=== PATIENT | female | born 1985 | race Caucasian/White ===

== ENCOUNTER → 2018-10-06 08:30 | Outpatient (CLI) | payer BC, SELFPAY ==
[2018-10-06 16:10] LABS: Chlamydia Trachomatis by PCR Negative (Negative); Neisserai gonorrhoeae by PCR Negative (Negative); Probe Check PASS; Sample Adequacy Control PASS; Specimen Processing Control PASS
[2018-10-11 10:17] LABS: HPV APTIMA, High Risk Negative (Negative)
== END ==
PROVIDERS: Referring Provider Nurse Practitioner Women's Health; Visit Provider Nurse Practitioner Women's Health
DX: Z12.4 Encounter for screening for malignant neoplasm of cervix (principal); Z11.3 Encounter for screening for infections with a predominantly sexual mode of transmission
CPT/HCPCS: 87491; 87591; 87624; 88175; G0145

== ENCOUNTER → 2018-10-13 12:07 | Outpatient (CLI) | payer BC, SELFPAY ==
--- NOTE | 2018-10-13 12:09 | US_ITS ---
STUDY: ULTRASOUND OF THE FEMALE PELVIS - COMPLETE REASON FOR EXAM: Female, 33 years old. Irregular periods LMP: TECHNIQUE: Transabdominal and Transvaginal TECHNICAL QUALITY: Adequate. COMPARISON: None. FINDINGS: The uterus is anteverted and is tilted to the left side of the pelvis. The uterus measures 7.86 cm. Normal uterine cervix. The endometrium measures 10 mm in thickness, and is hyperechoic. There is no demonstrated endometrial mass. There is no demonstrated myometrial mass. I.U.D. - The patient does not have an I.U.D. The right ovary is visualized. The right ovary measures 3.1 x 2.1 x 2.6 cm. There is a simple 2.1 cm cyst. There is normal arterial and normal venous vascularity. The left ovary is visualized. The left ovary measures 2.7 x 1.5 x 2.0 cm. There is no left ovarian cyst or ovarian mass. There is no visualized left adnexal mass or complex lesion. There is normal arterial and normal venous vascularity. The follicles on the ovaries are of similar size and located around the periphery of each ovary. This can be seen with PCOS. There is no fluid in the cul-de-sac. The bladder is sonographically normal US/Transvaginal Non- IMPRESSION: Both ovaries show similar sized follicles around the periphery of each ovary which can be seen with PCOS Sonographically normal uterus No demonstrated free fluid Electronically Signed: Ananth Odell MD at 8:23 EST , Service support ,
--- NOTE | 2018-10-13 12:09 | US_ITS ---
STUDY: ULTRASOUND OF THE FEMALE PELVIS - COMPLETE REASON FOR EXAM: Female, 33 years old. Irregular periods LMP: TECHNIQUE: Transabdominal and Transvaginal TECHNICAL QUALITY: Adequate. COMPARISON: None. FINDINGS: The uterus is anteverted and is tilted to the left side of the pelvis. The uterus measures 7.86 cm. Normal uterine cervix. The endometrium measures 10 mm in thickness, and is hyperechoic. There is no demonstrated endometrial mass. There is no demonstrated myometrial mass. I.U.D. - The patient does not have an I.U.D. The right ovary is visualized. The right ovary measures 3.1 x 2.1 x 2.6 cm. There is a simple 2.1 cm cyst. There is normal arterial and normal venous vascularity. The left ovary is visualized. The left ovary measures 2.7 x 1.5 x 2.0 cm. There is no left ovarian cyst or ovarian mass. There is no visualized left adnexal mass or complex lesion. There is normal arterial and normal venous vascularity. The follicles on the ovaries are of similar size and located around the periphery of each ovary. This can be seen with PCOS. There is no fluid in the cul-de-sac. The bladder is sonographically normal US/Pelvic (Non ) IMPRESSION: Both ovaries show similar sized follicles around the periphery of each ovary which can be seen with PCOS Sonographically normal uterus No demonstrated free fluid Electronically Signed: Ananth Odell MD at 8:23 EST , Service support ,
[2018-10-13 14:08] LABS: Follicle Stimulating Hormone 5.2 mIU/mL; Prolactin 19.9 ng/mL; Thyroid Stim Hormone (TSH) 0.83 uIU/mL (0.358-3.74)
[2018-10-14 20:07] LABS: DHEA Sulfate 349.6 ug/dL (84.8-378.0)
[2018-10-15 12:11] LABS: Testosterone Free 4.4 pg/mL (0.0-4.2)
[2018-10-17 08:17] LABS: 17-Hydroxyprogesterone 25 ng/dL (.)
== END ==
PROVIDERS: Referring Provider Nurse Practitioner Women's Health; Visit Provider Nurse Practitioner Women's Health
DX: N92.6 Irregular menstruation, unspecified (principal)
CPT/HCPCS: 36415; 76830; 76856; 82627; 83001; 83498; 84146; 84402; 84443; 93976; 82626

== ENCOUNTER → 2018-12-08 10:20 | Outpatient (CLI) | payer BC, SELFPAY ==
[2018-10-06 08:33] VITALS: BMI 47.1
[2018-12-08 11:24] LABS: Absolute Lymphocyte Count 2.27 X10^3/ul (0.83-4.51); Absolute Neutrophil Count 5.9 X10^3/uL (2.0-7.7); Basophil# 0.03 X10^3/uL; Basophil% 0.3 % (0-1); Eosinophil# 0.07 X10^3/uL; Eosinophils% 0.8 % (0-5); Hematocrit 44.8 % (37-47); Hemoglobin 14.8 g/dl (12.0-15.0); Lymphocyte # 2.27 X10^3/ul (4.0); Lymphocyte % 25.9 % (19-41); Mean Corpuscular Hgb 28.3 pg (27.0-32.0); Mean Corpuscular Volume 85.7 fL (81-99); Mean Platelet Vol. 10.7 fl (6.2-12.0); Monocyte# 0.49 X10^3/uL; Monocyte% 5.6 % (0-10); Neutrophil # 5.88 X10^3/uL (2.7-7.7); Neutrophil % 67.2 % (47-70); Platelet Count 349 K/mm3 (150-450); RBC Distribution Width CV 12.8 % (11.6-14.6); RBC Distribution Width SD 39.8 fl (35.1-43.9); Red Blood Count 5.23 M/mm3 (4.2-5.4); White Blood Count 8.8 K/mm3 (4.4-11.0)
[2018-12-08 11:27] LABS: POSITIVE COUNT NO; POSITIVE DIFFERENTIAL NO; POSITIVE MORPHOLOGY NO
== END ==
PROVIDERS: Referring Provider Obstetrics & Gynecology; Visit Provider Obstetrics & Gynecology
DX: N92.6 Irregular menstruation, unspecified (principal)
CPT/HCPCS: 36415; 85025

== ENCOUNTER 2018-12-28 11:48 | Day surgery (SDC) | payer BC, SELFPAY ==
[2018-12-22 11:58] VITALS: BMI 46.2
--- NOTE | 2018-12-27 20:35 | HP.PCM_ITS ---
- Problem List (1) Irregular menses Status: Acute (2) Environmental allergies Status: Chronic (3) PCOS (polycystic ovarian syndrome) Status: Chronic History and Physical Date of Admission: 12/28/18 Intake Vital Signs 12/22/18 Height 5 ft 3 in 12/22/18 Weight: 261 lb 12/22/18 Body Mass Index (BMI) 46.2 12/22/18 Blood Pressure 140/98 H Intake Visit Reasons: Pre-op surgery Chief Complaint: pre op appt Stud Master/Mistress Required: No Is patient in pain?: No Allergies amoxicillin Allergy (Verified 12/22/18 11:58) Hives Medications NK 12/21/18 [History Confirmed 12/22/18] Is last menstrual period known: No Post menopausal: No Patient : No : No PFSH Medical History Environmental allergies (Chronic) PCOS (polycystic ovarian syndrome) (Acute) Surgical History H/O colonoscopy (Resolved) Hx of cholecystectomy (Resolved) Family History Father Heart disease Hypertension Mother Hypertension Grandmother Hypertension Myocardial infarction CVA (cerebral vascular accident) Social History Smoking Status: Never smoker alcohol intake: current alcohol intake frequency: holidays/special occasions only substance use type: does not use caffeine: Yes what type of physical activity do you participate in: none seatbelt use: always do you feel safe at home: Yes additional social history: Fwvxiue-Gwvwvm-Hksttf 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 she is planning a d and c hysteroscopy. Female Reproductive History Cycle Length: >35 Menopausal Symptoms: No night sweats Pregancy History 0 Elective abortions Hx Para Spontaneous abortions Hx # Term Pregnancies Ectopic pregnancies Hx # Pregnancies Multiple births # of living children ROS Const Constitutional: Denies night sweats, weight gain, weight loss or fatigue ENT ENT: Reports system reviewed and no additional complaints, except as docu Cardio Card: Denies chest pain Resp Resp: Denies dyspnea or cough GI GI: Reports as per HPI; denies vomiting, nausea, abdominal pain or constipation : Denies urinary incontinence, urinary frequency, urinary urgency, urinary hesitancy, vaginal itching, vaginal odor, vaginal dryness or vaginal discharge Musc Musc: Denies muscle weakness, joint pain or back pain Neuro Neuro: Reports system reviewed and no additional complaints, except as docu Psych Psych: Reports system reviewed and no additional complaints, except as docu Endo Endo: Denies cold intolerance, increased thirst, excessive sweating or heat intolerance John/Lymph Hematologic/Lymphatic: Denies easy bleeding, Denies easy bruising, Denies enlarged lymph nodes Exam Const General: cooperative, healthy appearing, comfortable, no acute distress, well developed Orientation: alert [facility] Head: normal to inspection, normocephalic Ears: hearing grossly normal bilaterally, external ears normal Nose: external nose normal, nares normal Face and sinus: normal facial exam Neck Neck: normal visual inspection, no lymphadenopathy Thyroid: thyroid normal Chest Chest palpation & inspection: normal inspection of the chest Resp Effort & Inspection: normal respiratory effort Cardio Rate: regular rate GI Inspection: normal to inspection, non-distended Palpation: soft, no hepatosplenomegaly Musc Other: gross motor intact no deficits, full bilateral strength Skin General: no rashes or lesions noted Neuro General: alert, awake, no focal motor deficits, moves all extremities Motor: muscle tone normal throughout Extrem General: normal to inspection, no pedal edema Psych Appearance: grossly normal Mental Status: mental status grossly normal Affect: normal affect Speech and Movement: speech and movement normal Assessment & Plan Problems 1. PCOS (polycystic ovarian syndrome) E28.2 2. Irregular menses N92.6 Plan discussed surgical risks including risks of anesthesia, infection, bleeding, injury to bowel, bladder or blood vessels, and patient wishes to proceed with surgery. Coding Level of Care Code No Charge Diagnoses PCOS (polycystic ovarian syndrome) E28.2 Irregular menses N92.6 UPDATE- I have seen the patient and performed any clinically relevant updates to the history and physical exam. Ruchi Orozco MD
[2018-12-28] VITALS (7 sets, daily range): BP systolic 118–144; BP diastolic 72–88; PULSE 99–105; RESP 16–18; TEMP 36.2–36.9; O2SAT 94–98; BMI 45.8
--- NOTE | 2018-12-28 | EMB_PTH ---
PATIENT: ARIN IRCE LOC: [facility] [place] U[place][id number] AGE/SX: 33/F ROOM: RE12/28/[address]: Dr. Ruchi Orozco MD : 1985 BED: DIS: 12/28/2018 SPEC #: [id number] RECD: 12/28/18 14:51 STATUS: NICK FRED #: [id number] JOSE: 12/28/18 00:[address]: Ruchi Orozco DEPT: SURGICAL PATHOLOGY RECD BY: [place] ENTERED: 12/29/18 09:07 SP TYPE: ENDOM BX/C ALISA DR: No Primary Care Phys Tissues: Endometrium, NOS Procedures: Surgery Specimen Level IV HEADER OPERATION: Hysteroscopy, dilation and curettage PRE-OP DIAGNOSIS: Abnormal uterine bleeding TISSUE SUBMITTED: Endometrial curettings and polyp MICROSCOPIC DIAGNOSIS Endometrium, curettings and polypectomy: Mildly disordered proliferative endometrium. Fragments of benign inflamed polyp and simple cystic hyperplasia without atypia. Rare strips of benign superficial endocervix. AM:dwight 01/01/19 MICROSCOPIC DESCRIPTION Slides are reviewed. GROSS DESCRIPTION Received in fixative is one container labeled with the patient's name and designated endometrial curettings and polyp. The specimen consists of multiple irregular fragments of light pink-ruiz soft tissue that in aggregate measure 5 x 3 x 0.2 cm. Also present in the specimen is a polypoid fragment of ruiz tissue measuring 3 x 1.5 x 0.3 cm. The specimen is totally submitted in three cassettes. The polyp is represented in cassette 3. / AM:dwight 12/29/18 TC:5 CPT: 91131
[2018-12-28 12:41] LABS: Internal QC Validated? YES +Cl - CLEAR BKGD; Pregnancy, Urine Negative Negative
--- NOTE | 2018-12-28 13:45 | PCM.OPRPT ---
Problem List (1) Irregular menses Status: Acute (2) Environmental allergies Status: Chronic (3) PCOS (polycystic ovarian syndrome) Status: Chronic Report of Operation Date of Procedure: 12/28/18 Pre-Operative Diagnosis: aub Post-Operative Diagnosis: same plus polyp Surgery/Procedure Performed:: d and c hysteroscopy polypectomy Description of Surgical Findings:: polyp Type of Anesthesia:: Local MAC Specimen's removed: emc and polyp Drains: nava Estimated Blood Loss (mL): 25 Fluids Replaced: crystalloid Description of Procedure: Patient was prepped and draped in a normal sterile fashion under MAC anesthesia. A weighted speculum was placed in the vagina and the anterior lip of the cervix was grasped with a single-tooth tenaculum. A paracervical block was placed with 1% lidocaine. Cervix was progressively dilated to allow passage of a 5 mm hysteroscope. The lining was fully visualized and noted to have a thickened appearance. Uterine sounded to 9 cm. Curettage was performed and a large amount of tissue including a 2 cm long endometrial polyp was removed, sent to pathology. All instruments were removed from the vagina and excellent hemostasis was noted. Patient was awoken and taken to recovery in stable condition. Grafts/Implants Used: none - Complications none
--- NOTE | 2018-12-28 13:47 | DCINST_ITS ---
Discharge Diet: No Restrictions Discharge Activity: Return to Normal Activity, May Shower, May Take a Tub Bath Allergies/Adverse Reactions: Allergies amoxicillin Allergy (Verified 12/22/18 11:58) Hives Medications to take at Discharge NK 12/21/18 Primary Care Physician: Care Physician,No Primary [Primary Care Provider] - Test Results: Test results from this visit will be discussed in further detail at your follow- up appointment, if applicable. Please Follow Up With: Ruchi Orozco MD - [phone]
== END 2018-12-28 15:25 | disposition home or self-care (01) ==
LOC: SDC 11:49 → AC 11:50
PROVIDERS: Anesthesiology; Referring Provider Obstetrics & Gynecology; Visit Provider Obstetrics & Gynecology
PROC: 0UDB8ZZ Extraction of Endometrium, Via Natural or Artificial Opening Endoscopic (ICD-10-PCS; CPT 58558; principal; 2018-12-28 13:20)
DX: N84.0 Polyp of corpus uteri (principal); E28.2 Polycystic ovarian syndrome; N92.6 Irregular menstruation, unspecified; Z90.49 Acquired absence of other specified parts of digestive tract
CPT/HCPCS: 00952; 58558; 36415; 81025; 86850; 86900; 88305; J7120

== ENCOUNTER → 2019-05-18 17:50 | Outpatient (CLI) | payer BC, SELFPAY ==
--- NOTE | 2019-05-18 | EMB_PTH ---
PATIENT: ARIN RICE LOC: [facility] U#:[id number] AGE/SX: 40/F ROOM: RE05/18/[address]: Dr. Ruchi Orozco MD : 1985 BED: DIS: SPEC #: [id number] RECD: 05/18/19 17:15 STATUS: NIKC RERiya #: [id number] JOSE: 05/18/19 00:[address]: Ruchi Orozco DEPT: SURGICAL PATHOLOGY RECD BY: Harmeet Fragoso ENTERED: 05/21/19 10:06 SP TYPE: ENDOM BX/C OT DR: No Primary Care Phys Tissues: Endometrium, NOS Procedures: Surgery Specimen Level IV HEADER OPERATION: Endometrial biopsy PRE-OP DIAGNOSIS: Abnormal uterine bleeding TISSUE SUBMITTED: Endometrial biopsy MICROSCOPIC DIAGNOSIS Endometrial biopsy: Weakly proliferative endometrium with focal disorderly changes. Focus suggestive of endometrial polyp. No endometrial hyperplasia or neoplasia identified. FA:dwight 6/25/19 COMMENT Case has been reviewed in consultation with Dr. Reyes who concurs with the above diagnosis. IDC:[id number] MICROSCOPIC DESCRIPTION Slides are reviewed. GROSS DESCRIPTION Received is one container labeled with the patient's name and not further designated. The specimen consists of multiple jnbs-unfqsit-iuf tissue fragments mixed with mucoid material that in aggregate measure 1.5 x 1.5 0.2 cm. The specimen is totally submitted in one cassette. / FA:dwight 05/21/19 TC:4 CPT: 21663
[2019-05-18 14:41] VITALS: BMI 45.8
== END ==
PROVIDERS: Referring Provider Obstetrics & Gynecology; Visit Provider Obstetrics & Gynecology
DX: N89.8 Other specified noninflammatory disorders of vagina (principal); N93.9 Abnormal uterine and vaginal bleeding, unspecified
CPT/HCPCS: 87070; 87077; 87186; 87205; 88305

== ENCOUNTER → 2019-08-24 13:59 | Outpatient (CLI) | payer BC, SELFPAY ==
[2019-08-24 11:06] VITALS: BMI 45.8
== END ==
PROVIDERS: Visit Provider Obstetrics & Gynecology
DX: N92.6 Irregular menstruation, unspecified (principal)
CPT/HCPCS: 87070; 87077; 87186; 87205

== ENCOUNTER → 2019-09-07 12:08 | Outpatient (CLI) | payer BC, SELFPAY ==
[2019-08-24 11:06] VITALS: BMI 45.8
--- NOTE | 2019-09-07 12:10 | US_ITS ---
STUDY: ULTRASOUND OF THE FEMALE PELVIS - COMPLETE REASON FOR EXAM: Female, 34 years old. Irregular menses LMP: 08/10/2019 TECHNIQUE: Transabdominal and Transvaginal TECHNICAL QUALITY: Adequate. COMPARISON: 10/13/2018 FINDINGS: The uterus is anteverted and is in a midline position. The uterus measures 7.8 x 3.8 x 3.7 cm. 7 mm isoechoic nodule within the cervical canal without demonstrated Doppler flow. The endometrium measures 5.8 mm in thickness, and is hyperechoic. There is no demonstrated endometrial mass. There is no demonstrated myometrial mass although there is myometrial heterogeneity.. I.U.D. - The patient does not have an I.U.D. The right ovary is visualized. The right ovary measures 2.7 x 1.8 x 1.8 cm. There are multiple follicles of the right ovary without a dominant cyst. There is no visualized right adnexal mass or complex lesion. There is normal arterial and normal venous vascularity. The left ovary is visualized. The left ovary measures 3.4 x 2.7 x 2.1 cm. There are multiple follicles of the left ovary without a dominant cyst. There is no visualized left adnexal mass or complex lesion. There is normal arterial and normal venous vascularity. There is no fluid in the cul-de-sac. Visualized urinary bladder is unremarkable. US/Transvaginal Non- IMPRESSION: 1. Subcentimeter nodule in the cervix could represent small fibroid versus endometrial polyp, not evident on the prior study. Consider additional evaluation with MRI (without and with IV contrast) 2. Bilateral ovarian follicles without dominant cyst. Electronically Signed: Saurabh Wang MD ([place]) at 16:11 EDT , Service support ,
--- NOTE | 2019-09-07 12:10 | US_ITS ---
STUDY: ULTRASOUND OF THE FEMALE PELVIS - COMPLETE REASON FOR EXAM: Female, 34 years old. Irregular menses LMP: 08/10/2019 TECHNIQUE: Transabdominal and Transvaginal TECHNICAL QUALITY: Adequate. COMPARISON: 10/13/2018 FINDINGS: The uterus is anteverted and is in a midline position. The uterus measures 7.8 x 3.8 x 3.7 cm. 7 mm isoechoic nodule within the cervical canal without demonstrated Doppler flow. The endometrium measures 5.8 mm in thickness, and is hyperechoic. There is no demonstrated endometrial mass. There is no demonstrated myometrial mass although there is myometrial heterogeneity.. I.U.D. - The patient does not have an I.U.D. The right ovary is visualized. The right ovary measures 2.7 x 1.8 x 1.8 cm. There are multiple follicles of the right ovary without a dominant cyst. There is no visualized right adnexal mass or complex lesion. There is normal arterial and normal venous vascularity. The left ovary is visualized. The left ovary measures 3.4 x 2.7 x 2.1 cm. There are multiple follicles of the left ovary without a dominant cyst. There is no visualized left adnexal mass or complex lesion. There is normal arterial and normal venous vascularity. There is no fluid in the cul-de-sac. Visualized urinary bladder is unremarkable. US/Pelvic (Non ) IMPRESSION: 1. Subcentimeter nodule in the cervix could represent small fibroid versus endometrial polyp, not evident on the prior study. Consider additional evaluation with MRI (without and with IV contrast) 2. Bilateral ovarian follicles without dominant cyst. Electronically Signed: Saurabh Wang MD ([place]) at 16:11 EDT , Service support ,
== END ==
PROVIDERS: Referring Provider Obstetrics & Gynecology; Visit Provider Obstetrics & Gynecology
DX: N92.6 Irregular menstruation, unspecified (principal)
CPT/HCPCS: 76830; 76856; 93976

== ENCOUNTER → 2019-09-22 07:42 | Outpatient (CLI) | payer BC, SELFPAY ==
[2019-08-24 11:06] VITALS: BMI 45.8
--- NOTE | 2019-09-22 08:30 | MRI_ITS ---
HISTORY: endocervical polyp, abnormal uterine bleeding COMPARISON: Ultrasound 09/07/2019 TECHNIQUE: Multiplanar, multisequence MRI of the pelvis without and with contrast, 23 mL Dotarem intravenously. FINDINGS: UTERUS: Measures 7.5 x 3.8 x 5.5 cm. No distinct myometrial mass. Endometrium appears unremarkable measuring 7 mm. No distinct cervical lesion is seen on MRI. OVARIES: Unremarkable measuring 2.9 x 2.2 x 1.9 cm on the right and 3.2 x 2.9 x 2.3 cm on the left. Multiple small follicles bilaterally. BLADDER: Unremarkable. VISUALIZED GASTROINTESTINAL TRACT: Unremarkable. PERITONEUM: No significant free fluid. LYMPH NODES: No significant adenopathy. SKELETON AND SOFT TISSUES: Unremarkable. MRI/Pelvis W/WO Contrast IMPRESSION: No definite cervical abnormality is apparent on MRI. at 2219 Reported and signed by: Sharla Calabrese MD Electronically Signed: Sharla Calabrese MD at 22:19 EDT Tel , Service support ,
== END ==
PROVIDERS: Referring Provider Obstetrics & Gynecology; Visit Provider Obstetrics & Gynecology
DX: N84.1 Polyp of cervix uteri (principal)
CPT/HCPCS: 72197; A9575

== ENCOUNTER → 2019-11-23 13:44 | Outpatient (CLI) | payer BC, SELFPAY ==
[2019-11-23 08:37] VITALS: BMI 43.9
--- NOTE | 2019-11-23 08:40 | EMB_PTH ---
PATIENT: ARIN RICE LOC: [facility] U#:[id number] AGE/SX: 40/F ROOM: RE11/23/[address]: Dr. Ruchi Orozco MD : 1985 BED: DIS: SPEC #: [id number] RECD: 11/23/19 13:12 STATUS: NICK RERiya #: [id number] JOSE: 11/23/19 08:[address]: Ruchi Orozco DEPT: SURGICAL PATHOLOGY RECD BY: Arjun Jules ENTERED: 11/23/19 14:07 SP TYPE: ENDOM BX/C ALISA DR: Dr. Patricia Acevedo MD Tissues: Endometrium, NOS Procedures: Surgery Specimen Level IV HEADER OPERATION: Endometrial biopsy PRE-OP DIAGNOSIS: Simple endometrial hyperplasia without atypia TISSUE SUBMITTED: Endometrium MICROSCOPIC DIAGNOSIS Endometrium, biopsy: Secretory endometrium. AM:dwight 11/26/19 MICROSCOPIC DESCRIPTION Slides are reviewed. GROSS DESCRIPTION Received is one container labeled with the patient's name and not further designated. The specimen consists of multiple irregular fragments of pink-ruiz soft tissue that in aggregate measure 1.5 x 1.5 x 0.1 cm. The specimen is totally submitted in one cassette. / AM:dwight 11/23/19 TC:5 CPT: 15549
== END ==
PROVIDERS: Family Provider Internal Medicine; PCP Internal Medicine; Referring Provider Obstetrics & Gynecology; Visit Provider Obstetrics & Gynecology
DX: N85.01 Benign endometrial hyperplasia (principal)
CPT/HCPCS: 88305

== ENCOUNTER → 2019-11-30 11:08 | Outpatient (CLI) | payer BC, SELFPAY ==
[2019-11-23 08:37] VITALS: BMI 43.9
--- NOTE | 2019-11-30 11:09 | EKG12_ITS ---
Test Reason : HTN Blood Pressure : / mmHG Vent. Rate : 067 BPM Atrial Rate : 067 BPM P-R Int : 166 ms QRS Dur : 080 ms QT Int : 370 ms P-R-T Axes : 028 017 010 degrees QTc Int : 390 ms Sinus rhythm with marked sinus arrhythmia Otherwise normal ECG Confirmed by GAMA LARSON, JENNYFER ([id number]), index editor ARIN VALENZUELA ([id number]) on 12/03/2019 12:48:35 PM Referred By: Patricia Acevedo Confirmed By:JENNYFER MALLOY MD
== END ==
PROVIDERS: Family Provider Internal Medicine; PCP Internal Medicine; Referring Provider Internal Medicine; Visit Provider Internal Medicine
DX: I10 Essential (primary) hypertension (principal)
CPT/HCPCS: 93005

== ENCOUNTER → 2019-12-01 10:48 | Outpatient (CLI) | payer BC, SELFPAY ==
[2019-11-23 08:37] VITALS: BMI 43.9
[2019-12-01 11:37] LABS: Hemoglobin A1c 5.3 % (4.2-6.3)
[2019-12-01 11:40] LABS: ALB/GLOB Ratio 0.8 RATIO (0.9-2.4); AST(SGOT) 14 U/L (15-37); Alanine Aminotransfer ALT/SGPT 28 U/L (13-56); Albumin, Serum 3.4 g/dL (3.2-5.0); Alkaline Phosphatase 55 U/L (45-117); Anion Gap 5 (5-15); BUN 14 mg/dL (7-18); BUN/Creat Ratio 14.4 RATIO (10-20); Calcium,Total 8.6 mg/dL (8.5-10.1); Chloride 110 mmol/L (98-107); Cholesterol 169 mg/dL (200); Creatinine, Serum 0.98 mg/dL (0.55-1.02); EST Glomerular Filtration Rate 70 mL/min (>60); Est Glom Filt Rate - Afr Amer 84 mL/min (>60); Glucose 89 mg/dL (74-106); High Density Lipoprotein 47 mg/dL; Potassium 4.1 mmol/L (3.5-5.1); Protein, Total 7.4 g/dL (6.4-8.2); Sodium Level 140 mmol/L (136-145); T4 Free Direct 1.14 ng/dL (0.76-1.46); Thyroid Stim Hormone (TSH) 1.39 uIU/mL (0.358-3.74); Triglycerides 111 mg/dL; Very Low Density Lipoprotein 22 mg/dL (5-40)
== END ==
PROVIDERS: Family Provider Internal Medicine; PCP Internal Medicine; Referring Provider Internal Medicine; Visit Provider Internal Medicine
DX: I10 Essential (primary) hypertension (principal); E66.01 Morbid (severe) obesity due to excess calories; Z68.41 Body mass index [BMI] 40.0-44.9, adult
CPT/HCPCS: 36415; 80053; 80061; 83036; 84439; 84443

== ENCOUNTER → 2019-12-21 13:13 | Outpatient (CLI) | payer BC, SELFPAY ==
[2019-11-23 08:37] VITALS: BMI 43.9
[2019-12-21 08:13] VITALS: BMI 43.9
--- NOTE | 2019-12-21 13:14 | US_ITS ---
STUDY: ULTRASOUND OF THE FEMALE PELVIS - COMPLETE REASON FOR EXAM: Female, 34 years old. Irregular menses TECHNIQUE: Transabdominal and Transvaginal TECHNICAL QUALITY: Adequate. COMPARISON: MRI dated 09/22/2019. FINDINGS: The uterus is anteverted and is in a midline position. The uterus measures 9.1 x 4.0 x 3.2 cm. Normal uterine cervix. The endometrium measures 4 mm in thickness, and is hyperechoic. There is no demonstrated endometrial mass. There is no demonstrated myometrial mass. The right ovary is visualized. The right ovary measures 3.3 x 2.4 x 2.0 cm. There is no right ovarian cyst or ovarian mass. There is no visualized right adnexal mass or complex lesion. There is normal arterial and normal venous vascularity. The left ovary is visualized. The left ovary measures 3.2 x 2.4 x 1.8 cm. There is no left ovarian cyst or ovarian mass. There is no visualized left adnexal mass or complex lesion. There is normal arterial and normal venous vascularity. There is no fluid in the cul-de-sac. US/Transvaginal Non- IMPRESSION: Normal female pelvis. Electronically Signed: Lon Honeycutt, at 14:34 EST Tel , Service support ,
--- NOTE | 2019-12-21 13:14 | US_ITS ---
STUDY: ULTRASOUND OF THE FEMALE PELVIS - COMPLETE REASON FOR EXAM: Female, 34 years old. Irregular menses TECHNIQUE: Transabdominal and Transvaginal TECHNICAL QUALITY: Adequate. COMPARISON: MRI dated 09/22/2019. FINDINGS: The uterus is anteverted and is in a midline position. The uterus measures 9.1 x 4.0 x 3.2 cm. Normal uterine cervix. The endometrium measures 4 mm in thickness, and is hyperechoic. There is no demonstrated endometrial mass. There is no demonstrated myometrial mass. The right ovary is visualized. The right ovary measures 3.3 x 2.4 x 2.0 cm. There is no right ovarian cyst or ovarian mass. There is no visualized right adnexal mass or complex lesion. There is normal arterial and normal venous vascularity. The left ovary is visualized. The left ovary measures 3.2 x 2.4 x 1.8 cm. There is no left ovarian cyst or ovarian mass. There is no visualized left adnexal mass or complex lesion. There is normal arterial and normal venous vascularity. There is no fluid in the cul-de-sac. US/Pelvic (Non ) IMPRESSION: Normal female pelvis. Electronically Signed: Lon Honeycutt, at 14:34 EST Tel , Service support ,
== END ==
PROVIDERS: Family Provider Internal Medicine; PCP Internal Medicine; Referring Provider Nurse Practitioner Women's Health; Visit Provider Nurse Practitioner Women's Health
DX: N85.01 Benign endometrial hyperplasia (principal); N92.6 Irregular menstruation, unspecified; E28.2 Polycystic ovarian syndrome
CPT/HCPCS: 76830; 76856

== ENCOUNTER → 2020-01-18 09:53 | Outpatient (CLI) | payer BC, SELFPAY ==
[2019-12-21 08:13] VITALS: BMI 43.9
[2020-01-18 13:22] LABS: Anion Gap 7 (5-15); BUN 14 mg/dL (7-18); BUN/Creat Ratio 13.6 RATIO (10-20); Calcium,Total 9.3 mg/dL (8.5-10.1); Chloride 108 mmol/L (98-107); Creatinine, Serum 1.03 mg/dL (0.55-1.02); EST Glomerular Filtration Rate 65 mL/min (>60); Est Glom Filt Rate - Afr Amer 79 mL/min (>60); Glucose 88 mg/dL (74-106); Potassium 3.7 mmol/L (3.5-5.1); Sodium Level 140 mmol/L (136-145)
== END ==
PROVIDERS: PCP Internal Medicine; Referring Provider Internal Medicine; Visit Provider Internal Medicine
DX: I10 Essential (primary) hypertension (principal); I49.9 Cardiac arrhythmia, unspecified
CPT/HCPCS: 36415; 80048; 83735

== ENCOUNTER → 2020-01-25 08:51 | Outpatient (CLI) | payer BC, SELFPAY ==
[2020-01-18 10:10] VITALS: BMI 42.5
== END ==
PROVIDERS: PCP Internal Medicine; Referring Provider Internal Medicine; Visit Provider Internal Medicine
DX: I49.9 Cardiac arrhythmia, unspecified (principal)
CPT/HCPCS: 93225; 93226

== ENCOUNTER → 2020-02-15 11:20 | Outpatient (CLI) | payer BC, SELFPAY ==
[2020-02-15 10:52] VITALS: BMI 42.8
[2020-02-15 12:40] LABS: Anion Gap 8 (5-15); BUN 13 mg/dL (7-18); BUN/Creat Ratio 14.7 RATIO (10-20); Chloride 104 mmol/L (98-107); Creatinine, Serum 0.88 mg/dL (0.55-1.02); EST Glomerular Filtration Rate 78 mL/min (>60); Est Glom Filt Rate - Afr Amer 94 mL/min (>60); Glucose 95 mg/dL (74-106); Potassium 3.7 mmol/L (3.5-5.1); Sodium Level 137 mmol/L (136-145)
== END ==
PROVIDERS: PCP Internal Medicine; Referring Provider Internal Medicine; Visit Provider Internal Medicine
DX: I10 Essential (primary) hypertension (principal)
CPT/HCPCS: 36415; 80048

== ENCOUNTER → 2020-04-07 11:37 | Outpatient (CLI) | payer BC, SELFPAY ==
[2020-03-21 09:22] VITALS: BMI 42.5
== END ==
PROVIDERS: PCP Internal Medicine; Visit Provider Internal Medicine
DX: G47.10 Hypersomnia, unspecified (principal)
CPT/HCPCS: 95806

== ENCOUNTER → 2020-05-23 10:00 | Outpatient (CLI) | payer BC, SELFPAY ==
[2020-03-21 09:22] VITALS: BMI 42.5
== END ==
PROVIDERS: PCP Internal Medicine; Referring Provider Nurse Practitioner Acute Care; Visit Provider Nurse Practitioner Acute Care
DX: Z46.89 Encounter for fitting and adjustment of other specified devices (principal)

== ENCOUNTER → 2020-05-26 10:00 | Outpatient (CLI) | payer BC, SELFPAY ==
[2020-03-21 09:22] VITALS: BMI 42.5
== END ==
PROVIDERS: PCP Internal Medicine; Visit Provider Nurse Practitioner Acute Care
DX: Z46.89 Encounter for fitting and adjustment of other specified devices (principal)

== ENCOUNTER → 2020-10-31 13:46 | Outpatient (CLI) | payer BC, SELFPAY ==
[2020-10-10 11:28] VITALS: BMI 43.7
[2020-10-31 15:13] LABS: Absolute Lymphocyte Count 2.45 X10^3/uL (0.83-4.51); Absolute Neutrophil Count 5.3 X10^3/uL (2.0-7.7); Basophil# 0.05 X10^3/uL; Basophil% 0.6 % (0-1); Eosinophil# 0.08 X10^3/uL; Hematocrit 40.7 % (37-47); Hemoglobin 13.2 g/dL (12.0-15.0); Lymphocyte # 2.45 X10^3/ul (4.0); Lymphocyte % 29.2 % (19-41); Mean Corp Hgb Conc 32.4 g/dL (32-36); Mean Corpuscular Hgb 28.2 pg (27.0-32.0); Mean Platelet Vol. 10.7 fl (6.2-12.0); Monocyte# 0.45 X10^3/uL; Monocyte% 5.4 % (0-10); NRBC Flagged by Analyzer 0 % (0-5); Neutrophil # 5.34 X10^3/uL (2.7-7.7); Neutrophil % 63.4 % (47-70); Platelet Count 346 K/mm3 (150-450); RBC Distribution Width CV 12.6 % (11.6-14.6); RBC Distribution Width SD 40.2 fl (35.1-43.9); Red Blood Count 4.68 M/mm3 (4.2-5.4); White Blood Count 8.4 K/mm3 (4.4-11.0)
[2020-10-31 15:54] LABS: ALB/GLOB Ratio 0.9 RATIO (0.9-2.4); AST(SGOT) 18 U/L (15-37); Alanine Aminotransfer ALT/SGPT 34 U/L (13-56); Albumin, Serum 3.5 g/dL (3.2-5.0); Alkaline Phosphatase 57 U/L (45-117); Anion Gap 6 (5-15); BUN 13 mg/dL (7-18); BUN/Creat Ratio 15.4 RATIO (10-20); Calcium,Total 9.3 mg/dL (8.5-10.1); Chloride 107 mmol/L (98-107); Creatinine, Serum 0.84 mg/dL (0.55-1.02); EST Glomerular Filtration Rate 82 mL/min (>60); Est Glom Filt Rate - Afr Amer 99 mL/min (>60); Glucose 90 mg/dL (74-106); Potassium 3.4 mmol/L (3.5-5.1); Protein, Total 7.5 g/dL (6.4-8.2); Sodium Level 138 mmol/L (136-145)
== END ==
PROVIDERS: PCP Internal Medicine; Referring Provider Internal Medicine; Visit Provider Internal Medicine
DX: I10 Essential (primary) hypertension (principal); E28.2 Polycystic ovarian syndrome
CPT/HCPCS: 36415; 80053; 85025

== ENCOUNTER → 2020-12-05 10:11 | Outpatient (CLI) | payer BC, SELFPAY ==
[2020-12-05 09:32] VITALS: BMI 43.9
[2020-12-05 12:44] LABS: Anion Gap 7 (5-15); BUN 16 mg/dL (7-18); BUN/Creat Ratio 16.9 RATIO (10-20); Chloride 105 mmol/L (98-107); Creatinine, Serum 0.94 mg/dL (0.55-1.02); EST Glomerular Filtration Rate 72 mL/min (>60); Est Glom Filt Rate - Afr Amer 87 mL/min (>60); Glucose 82 mg/dL (74-106); Potassium 3.9 mmol/L (3.5-5.1); Sodium Level 138 mmol/L (136-145)
== END ==
PROVIDERS: PCP Internal Medicine; Referring Provider Internal Medicine; Visit Provider Internal Medicine
DX: I10 Essential (primary) hypertension (principal)
CPT/HCPCS: 36415; 80048

== ENCOUNTER → 2021-06-12 10:59 | Outpatient (CLI) | payer BC, SELFPAY ==
[2021-06-12 10:33] VITALS: BMI 44.6
[2021-06-12 12:25] LABS: ALB/GLOB Ratio 0.9 RATIO (0.9-2.4); AST(SGOT) 32 U/L (15-37); Alanine Aminotransfer ALT/SGPT 63 U/L (13-56); Albumin, Serum 3.6 g/dL (3.2-5.0); Alkaline Phosphatase 60 U/L (45-117); Anion Gap 6 (5-15); BUN 13 mg/dL (7-18); BUN/Creat Ratio 12.6 RATIO (10-20); Calcium,Total 9.3 mg/dL (8.5-10.1); Chloride 106 mmol/L (98-107); Creatinine, Serum 1.03 mg/dL (0.55-1.02); EST Glomerular Filtration Rate 65 mL/min (>60); Est Glom Filt Rate - Afr Amer 79 mL/min (>60); Globulin 4.2 g/dL (2.2-4.2); Glucose 93 mg/dL (74-106); Potassium 3.8 mmol/L (3.5-5.1); Protein, Total 7.8 g/dL (6.4-8.2); Sodium Level 137 mmol/L (136-145)
== END ==
PROVIDERS: PCP Internal Medicine; Referring Provider Internal Medicine; Visit Provider Internal Medicine
DX: I10 Essential (primary) hypertension (principal)
CPT/HCPCS: 36415; 80053

== ENCOUNTER → 2021-09-04 09:40 | Outpatient (CLI) | payer BC, SELFPAY ==
[2021-09-04 09:53] LABS: Absolute Lymphocyte Count 2.46 X10^3/uL (0.83-4.51); Basophil# 0.06 X10^3/uL; Basophil% 0.7 % (0-1); Eosinophil# 0.08 X10^3/uL; Eosinophils% 0.9 % (0-5); Hematocrit 41.1 % (37-47); Hemoglobin 13.4 g/dL (12.0-15.0); Lymphocyte # 2.46 X10^3/ul (0.83-4.51); Lymphocyte % 27.2 % (19-41); Mean Corp Hgb Conc 32.6 g/dL (32-36); Mean Corpuscular Hgb 28.2 pg (27.0-32.0); Mean Corpuscular Volume 86.3 fL (81-99); Mean Platelet Vol. 9.6 fl (6.2-12.0); Monocyte# 0.47 X10^3/uL; Monocyte% 5.2 % (0-10); NRBC Flagged by Analyzer 0 % (0-5); Neutrophil # 5.96 X10^3/uL (2.7-7.7); Neutrophil % 65.8 % (47-70); Platelet Count 374 K/mm3 (150-450); RBC Distribution Width CV 12.8 % (11.6-14.6); RBC Distribution Width SD 40.1 fl (35.1-43.9); Red Blood Count 4.76 M/mm3 (4.2-5.4); White Blood Count 9.1 K/mm3 (4.4-11.0)
[2021-09-04 10:15] LABS: T4 Free Direct 0.91 ng/dL (0.76-1.46); Thyroid Stim Hormone (TSH) 1.39 uIU/mL (0.358-3.74)
== END ==
PROVIDERS: PCP Internal Medicine; Referring Provider Obstetrics & Gynecology; Visit Provider Obstetrics & Gynecology
DX: N93.9 Abnormal uterine and vaginal bleeding, unspecified (principal)
CPT/HCPCS: 36415; 84439; 84443; 85025

== ENCOUNTER → 2021-09-25 11:22 | Outpatient (CLI) | payer BC, SELFPAY ==
--- NOTE | 2021-09-25 11:23 | US_ITS ---
STUDY: ULTRASOUND OF THE FEMALE PELVIS - COMPLETE REASON FOR EXAM: Female, 36 years old. aub LMP: 09/17/2021. TECHNIQUE: Transabdominal and Transvaginal TECHNICAL QUALITY: Adequate. COMPARISON: Comparison is made with prior examination dated 06/20/2020. FINDINGS: The uterus is anteverted and is in a midline position. The uterus measures 7.1 cm x 4 cm x 3.3 cm. There is a Nabothian cyst of the cervix. The endometrium measures 4.6 mm in thickness, and is hyperechoic. There is no demonstrated endometrial mass. There is no demonstrated myometrial mass. I.U.D. - The patient does not have an I.U.D. The right ovary is visualized. The right ovary measures 2.9 cm x 2.3 cm x 2.4 cm. Follicles are seen in the right ovary. There is no visualized right adnexal mass or complex lesion. There is normal arterial and normal venous vascularity. The left ovary is visualized. The left ovary measures 3.4 cm x 2.8 cm x 1.7 cm. Follicles are seen in the left ovary. There is no visualized left adnexal mass or complex lesion. There is normal arterial and normal venous vascularity. There is no fluid in the cul-de-sac. The pre void volume of the bladder was 346 ml. US/Pelvic (Non ) IMPRESSION: Normal female pelvis. Electronically Signed: Cilff Rush MD at 14:44 EDT , Service support ,
--- NOTE | 2021-09-25 11:23 | US_ITS ---
STUDY: ULTRASOUND OF THE FEMALE PELVIS - COMPLETE REASON FOR EXAM: Female, 36 years old. aub LMP: 09/17/2021. TECHNIQUE: Transabdominal and Transvaginal TECHNICAL QUALITY: Adequate. COMPARISON: Comparison is made with prior examination dated 06/20/2020. FINDINGS: The uterus is anteverted and is in a midline position. The uterus measures 7.1 cm x 4 cm x 3.3 cm. There is a Nabothian cyst of the cervix. The endometrium measures 4.6 mm in thickness, and is hyperechoic. There is no demonstrated endometrial mass. There is no demonstrated myometrial mass. I.U.D. - The patient does not have an I.U.D. The right ovary is visualized. The right ovary measures 2.9 cm x 2.3 cm x 2.4 cm. Follicles are seen in the right ovary. There is no visualized right adnexal mass or complex lesion. There is normal arterial and normal venous vascularity. The left ovary is visualized. The left ovary measures 3.4 cm x 2.8 cm x 1.7 cm. Follicles are seen in the left ovary. There is no visualized left adnexal mass or complex lesion. There is normal arterial and normal venous vascularity. There is no fluid in the cul-de-sac. The pre void volume of the bladder was 346 ml. US/Transvaginal Non- IMPRESSION: Normal female pelvis. Electronically Signed: Cliff Rush MD at 14:44 EDT , Service support ,
== END ==
PROVIDERS: PCP Internal Medicine; Referring Provider Obstetrics & Gynecology; Visit Provider Obstetrics & Gynecology
DX: N93.9 Abnormal uterine and vaginal bleeding, unspecified (principal)
CPT/HCPCS: 76830; 76856

== ENCOUNTER 2022-01-08 10:27 | Outpatient (CLI) | payer BC, SELFPAY ==
[2022-01-08 11:30] LABS: Cholesterol 195 mg/dL (200); Glucose 88 mg/dL (74-106); High Density Lipoprotein 49 mg/dL; Thyroid Stim Hormone (TSH) 0.68 uIU/mL (0.358-3.74); Triglycerides 101 mg/dL; Very Low Density Lipoprotein 20 mg/dL (5-40)
== END 2022-01-08 23:59 | disposition home or self-care (01) ==
LOC: PAVLAB 10:27
PROVIDERS: PCP Internal Medicine; Referring Provider Obstetrics & Gynecology; Visit Provider Obstetrics & Gynecology
DX: Z13.1 Encounter for screening for diabetes mellitus (principal); Z13.220 Encounter for screening for lipoid disorders; Z13.29 Encounter for screening for other suspected endocrine disorder
CPT/HCPCS: 36415; 80061; 82947; 84443

== ENCOUNTER → 2022-03-24 | Outpatient (CLI) | payer BC, SELFPAY ==
[2022-03-24 18:55] LABS: Progesterone Level 15.35 ng/mL (See Comment)
== END | disposition home or self-care (01) ==
LOC: LAB 17:17
PROVIDERS: PCP Internal Medicine; Visit Provider Obstetrics & Gynecology
DX: N97.0 Female infertility associated with anovulation (principal)
CPT/HCPCS: 36415; 84144

== ENCOUNTER → 2022-04-21 | Outpatient (CLI) | payer BC, SELFPAY ==
[2022-04-21 18:46] LABS: Progesterone Level 0.67 ng/mL (See Comment)
== END | disposition home or self-care (01) ==
LOC: LAB 16:59
PROVIDERS: PCP Internal Medicine; Visit Provider Obstetrics & Gynecology
DX: N97.0 Female infertility associated with anovulation (principal)
CPT/HCPCS: 36415; 84144

== ENCOUNTER → 2022-05-14 | Outpatient (CLI) | payer BC, SELFPAY ==
[2022-05-14 14:10] LABS: Progesterone Level 0.55 ng/mL (See Comment)
== END | disposition home or self-care (01) ==
LOC: LAB 13:27
PROVIDERS: PCP Internal Medicine; Referring Provider Obstetrics & Gynecology; Visit Provider Obstetrics & Gynecology
DX: N97.0 Female infertility associated with anovulation (principal)
CPT/HCPCS: 36415; 84144

== ENCOUNTER → 2022-07-12 | Outpatient (CLI) | payer BC, SELFPAY ==
[2022-07-12 18:34] LABS: Progesterone Level 0.33 ng/mL (See Comment)
== END | disposition home or self-care (01) ==
LOC: LAB 17:16
PROVIDERS: PCP Internal Medicine; Visit Provider Obstetrics & Gynecology
DX: N92.1 Excessive and frequent menstruation with irregular cycle (principal)
CPT/HCPCS: 36415; 84144

== ENCOUNTER → 2022-12-03 | Outpatient (CLI) | payer BC, SELFPAY ==
[2022-12-03 13:18] LABS: Absolute Lymphocyte Count 2.51 X10^3/uL (0.83-4.51); Basophil# 0.04 X10^3/uL; Basophil% 0.5 % (0-1); Eosinophil# 0.07 X10^3/uL; Eosinophils% 0.9 % (0-5); Hematocrit 43.1 % (37-47); Hemoglobin 14.2 g/dL (12.0-15.0); Lymphocyte # 2.51 X10^3/ul (0.83-4.51); Lymphocyte % 30.8 % (19-41); Mean Corp Hgb Conc 32.9 g/dL (32-36); Mean Corpuscular Hgb 28.7 pg (27.0-32.0); Mean Corpuscular Volume 87.2 fL (81-99); Mean Platelet Vol. 10.3 fl (6.2-12.0); Monocyte# 0.44 X10^3/uL; Monocyte% 5.4 % (0-10); NRBC Flagged by Analyzer 0 % (0-5); Neutrophil # 5.03 X10^3/uL (2.7-7.7); Neutrophil % 61.8 % (47-70); Platelet Count 369 K/mm3 (150-450); RBC Distribution Width SD 40.6 fl (35.1-43.9); Red Blood Count 4.94 M/mm3 (4.2-5.4); White Blood Count 8.1 K/mm3 (4.4-11.0)
[2022-12-03 13:39] LABS: AST(SGOT) 19 U/L (15-37); Alanine Aminotransfer ALT/SGPT 36 U/L (13-56); Albumin, Serum 3.8 g/dL (3.2-5.0); Alkaline Phosphatase 61 U/L (45-117); Anion Gap 4 (5-15); BUN 16 mg/dL (7-18); BUN/Creat Ratio 17.3 RATIO (10-20); Calcium,Total 9.2 mg/dL (8.5-10.1); Chloride 106 mmol/L (98-107); Cholesterol 172 mg/dL (200); Creatinine, Serum 0.93 mg/dL (0.55-1.02); EST Glomerular Filtration Rate 73 mL/min (>60); Est Glom Filt Rate - Afr Amer 88 mL/min (>60); Globulin 3.7 g/dL (2.2-4.2); Glucose 100 mg/dL (74-106); High Density Lipoprotein 53 mg/dL; Potassium 3.8 mmol/L (3.5-5.1); Protein, Total 7.5 g/dL (6.4-8.2); Sodium Level 139 mmol/L (136-145); Triglycerides 91 mg/dL; Very Low Density Lipoprotein 18 mg/dL (5-40)
== END | disposition home or self-care (01) ==
LOC: BIMLAB 12:10
PROVIDERS: PCP Internal Medicine; Referring Provider Internal Medicine; Visit Provider Internal Medicine
DX: I10 Essential (primary) hypertension (principal)
CPT/HCPCS: 36415; 80053; 80061; 85025

== ENCOUNTER → 2022-12-24 | Outpatient (CLI) | payer BC, SELFPAY ==
[2022-12-30 19:39] LABS: HPV APTIMA, High Risk Negative (Negative)
== END | disposition home or self-care (01) ==
LOC: LABSPEC 16:18
PROVIDERS: PCP Internal Medicine; Visit Provider Obstetrics & Gynecology
DX: Z12.4 Encounter for screening for malignant neoplasm of cervix (principal)
CPT/HCPCS: 87624; 88175; G0145

== ENCOUNTER → 2023-04-01 | Outpatient (CLI) | payer BC, SELFPAY ==
[2023-04-01 18:18] LABS: Protein, Urine (Random) < 6.0 mg/dL (<11.9)
== END | disposition home or self-care (01) ==
LOC: LABSPEC 16:41
PROVIDERS: PCP Internal Medicine; Referring Provider Obstetrics & Gynecology; Visit Provider Obstetrics & Gynecology
DX: O10.919 Unspecified pre-existing hypertension complicating pregnancy, unspecified trimester (principal); Z3A.00 Weeks of gestation of pregnancy not specified
CPT/HCPCS: 82570; 84156; 87086; 87088; 87491; 87591

== ENCOUNTER → 2023-04-29 | Outpatient (CLI) | payer BC, SELFPAY ==
[2023-04-29 10:46] LABS: Absolute Lymphocyte Count 1.62 X10^3/uL (0.83-4.51); Absolute Neutrophil Count 5.3 X10^3/uL (2.0-7.7); Basophil# 0.04 X10^3/uL; Basophil% 0.5 % (0-1); Eosinophil# 0.05 X10^3/uL; Eosinophils% 0.7 % (0-5); Hematocrit 37.1 % (37-47); Hemoglobin 12.5 g/dL (12.0-15.0); Lymphocyte # 1.62 X10^3/ul (0.83-4.51); Lymphocyte % 21.6 % (19-41); Mean Corp Hgb Conc 33.7 g/dL (32-36); Mean Corpuscular Hgb 29.2 pg (27.0-32.0); Mean Corpuscular Volume 86.7 fL (81-99); Mean Platelet Vol. 9.7 fl (6.2-12.0); Monocyte# 0.46 X10^3/uL; Monocyte% 6.1 % (0-10); NRBC Flagged by Analyzer 0 % (0-5); Neutrophil # 5.28 X10^3/uL (2.7-7.7); Neutrophil % 70.4 % (47-70); Platelet Count 244 K/mm3 (150-450); RBC Distribution Width CV 13.1 % (11.6-14.6); RBC Distribution Width SD 40.9 fl (35.1-43.9); Red Blood Count 4.28 M/mm3 (4.2-5.4); White Blood Count 7.5 K/mm3 (4.4-11.0)
[2023-04-29 11:02] LABS: ALB/GLOB Ratio 0.9 RATIO (0.9-2.4); AST(SGOT) 13 U/L (15-37); Alanine Aminotransfer ALT/SGPT 19 U/L (13-56); Albumin, Serum 3.2 g/dL (3.2-5.0); Alkaline Phosphatase 50 U/L (45-117); Anion Gap 7 (5-15); BUN 11 mg/dL (7-18); BUN/Creat Ratio 15.4 RATIO (10-20); Calcium,Total 8.9 mg/dL (8.5-10.1); Chloride 108 mmol/L (98-107); Creatinine, Serum 0.71 mg/dL (0.55-1.02); EST Glomerular Filtration Rate 98 mL/min (>60); Est Glom Filt Rate - Afr Amer 119 mL/min (>60); Globulin 3.6 g/dL (2.2-4.2); Glucose 125 mg/dL (74-106); Glucose Challenge Gest 1H 50g 125 mg/dL (70-140); Potassium 3.5 mmol/L (3.5-5.1); Protein, Total 6.8 g/dL (6.4-8.2); Sodium Level 138 mmol/L (136-145)
[2023-04-29 12:00] LABS: HIV - WCH Non-Reactive (Nonreactive); Hepatitis B Surface Antigen Non-Reactive (Nonreactive); Hepatitis C Antibody Non-Reactive (Nonreactive); Rubella IgG Reactive (Nonreactive); Syphilis Antibodies Non-reactive
== END | disposition home or self-care (01) ==
LOC: PAVLAB 10:19
PROVIDERS: PCP Internal Medicine; Referring Provider Obstetrics & Gynecology; Visit Provider Obstetrics & Gynecology
DX: O10.919 Unspecified pre-existing hypertension complicating pregnancy, unspecified trimester (principal); Z3A.00 Weeks of gestation of pregnancy not specified; O99.210 Obesity complicating pregnancy, unspecified trimester
CPT/HCPCS: 36415; 80053; 82950; 85025; 86703; 86762; 86780; 86803; 86850; 86900; 86901; 87340

== ENCOUNTER → 2023-07-22 | Outpatient (CLI) | payer BC, SELFPAY ==
[2023-07-22 13:56] LABS: Absolute Lymphocyte Count 2.08 X10^3/uL (0.83-4.51); Basophil# 0.03 X10^3/uL; Basophil% 0.3 % (0-1); Eosinophil# 0.08 X10^3/uL; Eosinophils% 0.7 % (0-5); Hematocrit 35.5 % (37-47); Hemoglobin 11.9 g/dL (12.0-15.0); Lymphocyte # 2.08 X10^3/ul (0.83-4.51); Lymphocyte % 18.8 % (19-41); Mean Corp Hgb Conc 33.5 g/dL (32-36); Mean Corpuscular Hgb 29.6 pg (27.0-32.0); Mean Corpuscular Volume 88.3 fL (81-99); Mean Platelet Vol. 10.1 fl (6.2-12.0); Monocyte% 6.3 % (0-10); NRBC Flagged by Analyzer 0 % (0-5); Neutrophil # 8.03 X10^3/uL (2.7-7.7); Neutrophil % 72.8 % (47-70); Platelet Count 261 K/mm3 (150-450); RBC Distribution Width CV 13.3 % (11.6-14.6); RBC Distribution Width SD 43.2 fl (35.1-43.9); Red Blood Count 4.02 M/mm3 (4.2-5.4)
[2023-07-22 14:29] LABS: Glucose Challenge Gest 1H 50g 96 mg/dL (70-140)
[2023-07-22 15:01] LABS: HIV - WCH Non-Reactive (Nonreactive); Syphilis Antibodies Non-reactive
== END | disposition home or self-care (01) ==
PROVIDERS: Obstetrics & Gynecology; Referring Provider Obstetrics & Gynecology; Visit Provider Obstetrics & Gynecology
DX: Z13.1 Encounter for screening for diabetes mellitus (principal)
CPT/HCPCS: 36415; 82950; 85025; 86703; 86780

== ENCOUNTER → 2023-07-29 | Outpatient (CLI) | payer BC, SELFPAY ==
[2023-07-29 13:29] LABS: ALB/GLOB Ratio 0.8 RATIO (0.9-2.4); AST(SGOT) 11 U/L (15-37); Alanine Aminotransfer ALT/SGPT 15 U/L (13-56); Albumin, Serum 2.8 g/dL (3.2-5.0); Alkaline Phosphatase 72 U/L (45-117); Anion Gap 7 (5-15); BUN 8 mg/dL (7-18); BUN/Creat Ratio 11.6 RATIO (10-20); Calcium,Total 8.8 mg/dL (8.5-10.1); Chloride 107 mmol/L (98-107); Creatinine, Serum 0.69 mg/dL (0.55-1.02); EST Glomerular Filtration Rate 102 mL/min (>60); Est Glom Filt Rate - Afr Amer 123 mL/min (>60); Globulin 3.4 g/dL (2.2-4.2); Glucose 77 mg/dL (74-106); Potassium 3.8 mmol/L (3.5-5.1); Protein, Total 6.2 g/dL (6.4-8.2); Sodium Level 139 mmol/L (136-145); T4 Free Direct 0.87 ng/dL (0.76-1.46)
[2023-08-02 13:07] LABS: ANTINUCLEAR ANTIBODIES DIRECT Negative (Negative)
== END | disposition home or self-care (01) ==
LOC: BIMLAB 10:49
PROVIDERS: PCP Internal Medicine; Referring Provider Internal Medicine; Visit Provider Internal Medicine
DX: M19.90 Unspecified osteoarthritis, unspecified site (principal); Z13.29 Encounter for screening for other suspected endocrine disorder; I10 Essential (primary) hypertension
CPT/HCPCS: 36415; 80053; 84439; 84443; 86038; 86225; 86235

== ENCOUNTER → 2023-09-12 | Outpatient (CLI) | payer BC, SELFPAY ==
--- NOTE | 2023-09-12 15:52 | US_ITS ---
INDICATION: chronic hypertension EXAMINATION: Ultrasound US Biophysical Profile W/O Nonst TECHNIQUE: Transabdominal pelvic ultrasound was performed. COMPARISON: No relevant prior comparison study available Provided EGA: 33 weeks, 1 day FINDINGS: INTRAUTERINE GESTATION(s): Single. ESTIMATED GESTATIONAL AGE: 31 weeks, 5 days ESTIMATED DUE DATE (MANDI): 11/09/2023 HEART MOTION is 145 bpm. AMNIOTIC FLUID INDEX (LESLIE): 12.1 ESTIMATED WEIGHT: 1925 Percentile 18%. BIOPHYSICAL PROFILE (BPP): 07/05 -- Breathin/2. -- Movement: 2/2. -- Tone: 2/2. --LESLIE: 2/2. BIOMETRIC MEASUREMENTS: HEAD CIRCUMFERENCE: 8.0 cm which corresponds to 32 weeks, 2 days. BIPARIETAL DIAMETER: 28.9 cm which corresponds to 31 weeks, 6 days. ABDOMINAL CIRCUMFERENCE: 27.95 cm which corresponds to 32 weeks, 0 days. FEMORAL LENGTH: 6.22 cm which corresponds to 32 weeks, 2 days. PRESENTATION: Cephalic PLACENTA: Anterior. There is no placenta previa or abruption. CERVIX: The cervix is closed. MATERNAL OVARIES: Not visualized. FREE FLUID: None. IMPRESSION: * Single live intrauterine gestation, with estimated gestational age of 31 weeks, 5 days by ultrasound. * Normal BPP Electronically Signed: Delroy Washington MD at 16:16 EDT , INDICATION: chronic hypertension EXAMINATION: Ultrasound US Biophysical Profile W/O Nonst TECHNIQUE: Transabdominal pelvic ultrasound was performed. COMPARISON: No relevant prior comparison study available Provided EGA: 33 weeks, 1 day FINDINGS: INTRAUTERINE GESTATION(s): Single. ESTIMATED GESTATIONAL AGE: 31 weeks, 5 days ESTIMATED DUE DATE (MANDI): 11/09/2023 HEART MOTION is 145 bpm. AMNIOTIC FLUID INDEX (LESLIE): 12.1 ESTIMATED WEIGHT: 1925 Percentile 18%. BIOPHYSICAL PROFILE (BPP): 07/05 -- Breathin/2. -- Movement: 2. -- Tone: 2. --LESLIE: 2. BIOMETRIC MEASUREMENTS: HEAD CIRCUMFERENCE: 8.0 cm which corresponds to 32 weeks, 2 days. BIPARIETAL DIAMETER: 28.9 cm which corresponds to 31 weeks, 6 days. ABDOMINAL CIRCUMFERENCE: 27.95 cm which corresponds to 32 weeks, 0 days. FEMORAL LENGTH: 6.22 cm which corresponds to 32 weeks, 2 days. PRESENTATION: Cephalic PLACENTA: Anterior. There is no placenta previa or abruption. CERVIX: The cervix is closed. MATERNAL OVARIES: Not visualized. FREE FLUID: None. US/Biophysical Prof W/O Non Stres
== END | disposition home or self-care (01) ==
PROVIDERS: PCP Internal Medicine; Visit Provider Obstetrics & Gynecology
DX: O10.919 Unspecified pre-existing hypertension complicating pregnancy, unspecified trimester (principal); Z3A.00 Weeks of gestation of pregnancy not specified
CPT/HCPCS: 76816; 76819

== ENCOUNTER → 2023-09-16 | Outpatient (CLI) | payer BC, SELFPAY ==
--- NOTE | 2023-09-16 11:40 | US_ITS ---
STUDY: OBSTETRICAL ULTRASOUND - BIOPHYSICAL PROFILE REASON FOR EXAM: Female, 38 years old chronic hypertension LMP: PRIOR ULTRASOUND: 09/14/2023. TECHNIQUE: Transabdominal. TECHNICAL QUALITY: Adequate. FINDINGS: There is a single intrauterine fetus. The fetus is in a cephalic presentation. There is demonstrated cardiac activity with a heart rate of 142 bpm. There is a normal amniotic fluid volume. The largest amniotic fluid pocket measures 7.2 cm. The amniotic fluid index (LESLIE) is 11.7 cm. The placenta is anterior and not low-lying. There are Grade 0 placental changes. Age by LMP: 33 weeks, 5 days. MANDI by LMP: 10/30/2023. age by prior US: 32 weeks, 2 days. MANDI by prior US: 11/09/2023. Gender: BIOPHYSICAL PROFILE: Breathing Movements (FBM): 2 Gross Body Movements (GBM): 2 Tone (FT): 2 Amniotic Fluid Volume (AFV): 2 TOTAL SCORE: US/Biophysical Prof W/O Non Stres IMPRESSION: Normal biophysical profile of 07/05 remains stable and unchanged when compared to 09/12/2023. Electronically Signed: Ceferino Nava MD at 14:37 EDT ,
== END | disposition home or self-care (01) ==
PROVIDERS: PCP Internal Medicine; Visit Provider Obstetrics & Gynecology
DX: O10.919 Unspecified pre-existing hypertension complicating pregnancy, unspecified trimester (principal); Z3A.00 Weeks of gestation of pregnancy not specified
CPT/HCPCS: 76819

== ENCOUNTER → 2023-09-19 | Outpatient (CLI) | payer BC, SELFPAY ==
--- NOTE | 2023-09-19 17:59 | US_ITS ---
HISTORY: chronic hypertension. TECHNIQUE: Transabdominal pelvic ultrasound was performed. 33 images. COMPARISON: 09/16/2023. FINDINGS: INTRAUTERINE GESTATION(s): Single. PRESENTATION: Cephalic. PLACENTA: Anterior, grade 1. No placenta previa. HEART MOTION: 138-141 bpm. AMNIOTIC FLUID INDEX (LESLIE): 13.3 cm. Largest fluid pocket 4 cm. BIOPHYSICAL PROFILE (BPP): 07/05 -- Breathin/2. -- Movement: 2/2. -- Tone: 2/2. --LESLIE: 2/2. US/Biophysical Prof W/O Non Stres IMPRESSION: Single living intrauterine with a normal biophysical profile score. Electronically Signed: Kathleen Choi MD at 15:18 EDT ,
== END | disposition home or self-care (01) ==
LOC: US 17:58
PROVIDERS: PCP Internal Medicine; Visit Provider Obstetrics & Gynecology
DX: O10.919 Unspecified pre-existing hypertension complicating pregnancy, unspecified trimester (principal); Z3A.00 Weeks of gestation of pregnancy not specified
CPT/HCPCS: 76819

== ENCOUNTER → 2023-09-23 | Outpatient (CLI) | payer BC, SELFPAY ==
--- NOTE | 2023-09-23 10:52 | US_ITS ---
STUDY: OBSTETRICAL ULTRASOUND - BIOPHYSICAL PROFILE REASON FOR EXAM: Female, 38 years old chronic hypertension LMP: January 23, 2023. PRIOR ULTRASOUND: Comparison is made with prior study dated September 19, 2023. TECHNIQUE: Transabdominal TECHNICAL QUALITY: Adequate. FINDINGS: There is a single intrauterine fetus. The fetus is in a cephalic presentation. There is demonstrated cardiac activity with a heart rate of 147 bpm. There is a normal amniotic fluid volume. The largest amniotic fluid pocket measures 4.8 cm x 3 cm. The amniotic fluid index (LESLIE) is 10.34 cm. The placenta is anterior in location and is not low lying. There are Grade 0 placental changes. Age by LMP: 34 weeks, 5 days. MANDI by LMP: October 30, 2023. age by prior US: 33 weeks, 2 days. MANDI by prior US: November 09, 2023. BIOPHYSICAL PROFILE: Breathing Movements (FBM): 2 Gross Body Movements (GBM): 2 Tone (FT): 2 Amniotic Fluid Volume (AFV): 2 TOTAL SCORE: 8 / 8 US/Biophysical Prof W/O Non Stres IMPRESSION: Normal biophysical profile of 8/8. Electronically Signed: Cliff Rush MD at 14:47 EDT ,
== END | disposition home or self-care (01) ==
LOC: US 10:52
PROVIDERS: PCP Internal Medicine; Referring Provider Obstetrics & Gynecology; Visit Provider Obstetrics & Gynecology
DX: O10.919 Unspecified pre-existing hypertension complicating pregnancy, unspecified trimester (principal); Z3A.00 Weeks of gestation of pregnancy not specified
CPT/HCPCS: 76819

== ENCOUNTER 2023-09-26 18:53 | Outpatient (CLI) | payer BC, SELFPAY ==
[2023-09-26 19:28] VITALS: BMI 47.2
[2023-09-26 19:35] VITALS: O2SAT 94
[2023-09-26 19:36] VITALS: BP 124/60; PULSE 74; TEMP 37.1; O2SAT 95
--- NOTE | 2023-10-03 17:02 | OB.TRI.HP_ITS ---
HPI - General General Date of Service: 09/26/23 HPI Narrative ARIN RICE, is a 38 F who presents at 35 weeks for NST secondary to 6/8 BPP. now with + FM, no lof/vb/ctx. Maternal Data Information MANDI Calculator Estimated Delivery Date Method Current WG Current Estimate 10/30/23 LMP (Certain) 36w 1d Other Estimates 11/01/23 Ultrasound #1 35w 6d PFSH PFSH Medical History Arthritis Bilateral carpal tunnel syndrome Environmental allergies Hypertension Hypertension Infertility, anovulation Morbid obesity PCOS (polycystic ovarian syndrome) Screening for thyroid disorder Simple endometrial hyperplasia without atypia Home Medications montelukast 10 mg tablet (Singulair) 10 mg PO DAILY 12/21/19 [History Last Taken 09/25/23 20:00] fluticasone propionate 93 mcg/actuation breath activated aerosol (Xhance) 1 spray intranasal Q12H 11/13/21 [History Last Taken 09/25/23 08:00] hydrochlorothiazide 25 mg tablet See Rx Instructions .Route .COMPLEX #90 tabs 05/02/23 [Rx Last Taken 09/26/23 08:30] labetalol 100 mg tablet 100 mg PO BID #180 tabs 05/03/23 [Rx Last Taken 09/26/23 08:30] vitamin#30 30 mg iron-10 mg iron-folic acid 1 mg-omg3 capsule 1 cap PO DAILY 07/29/23 [History Last Taken 09/26/23 08:30] Allergy/AdvReac Type Severity Reaction Status Date / Time Environmental Allergies: Allergy Intermediate Rash Verified 09/30/23 10:48 Uncoded amoxicillin Allergy Hives Verified 09/30/23 10:48 Family History Father Heart disease Hypertension Mother Hypertension Cancer, Onset Age: 60 Grandmother Hypertension Myocardial infarction CVA (cerebral vascular accident) Congestive heart failure Lupus Surgical History H/O cervical polypectomy H/O colonoscopy Hx of cholecystectomy S/P dilation and curettage Social History adopted: No household members: spouse current occupational status: employed 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 current occupational exposures/hazards: No pets and animals: Yes pets and animals: dog(s) history of recent travel: No sexually active: Yes Smoking Status: Never smoker alcohol intake: current alcohol intake frequency: holidays/special occasions only details: Social substance use type: does not use caffeine: Yes Type: coffee Number of servings: 2 what type of physical activity do you participate in: none seatbelt use: always do you feel safe at home: Yes additional social history: Eylcdxw-Keulhb-Fdtcdj Salt 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 History 1 Elective abortions Hx Para 0 Spontaneous abortions Hx # Term Pregnancies Ectopic pregnancies Hx # Pregnancies Multiple births # of living children Visit Details Expected Delivery Route/Plan Labor Preferences- CB/BF classes: enc labor support person: Jose labor intervention preferences: none pain management options preferred: epidural cut cord/dad catch: might be interested : no PP control planned: [] discussed possible routes of delivery and associated risks: [] special requests: [] Plans Covid status: discussed Flu vaccine: declined Tdap vaccine: given Rhogam: na LARC form signed: [] movement and labor precautions reviewed. Problem list reviewed and updated with the most current plan of care details and appropriate orders placed. Relevant counseling for the gestational age provided. Continue routine care and follow up unless otherwise noted in visit notes/problem list details OB Flowsheet Initial Weight: 242 lb Date -?-?-?-?-?-?-?-?-?-?-?-?- EGA Weight BP Urine Prot -?-?-?-?-?-?-?-?-?-?-?-?- Glucose FHR FuHt Pres Dilation -?-?-?-?-?-?-?-?-?-?-?-?- Effaced St Visit Note 04/01/23 -?-?-?-?-?-?-?-?-?-?-?-?- 9w 5d 242 lb 6 oz (+6 oz) 126/83 -?-?-?-?-?-?-?-?-?-?-?-?- 170 -?-?-?-?-?-?-?-?-?-?-?-?- JV- CRL consiste nt with LMP. declines NIPT. 04/29/23 -?-?-?-?-?-?-?-?-?-?-?-?- 13w 5d 241 lb (-16 oz) 124/80 Negative -?-?-?-?-?-?-?-?-?-?-?-?- Negative 160 -?-?-?-?-?-?-?-?-?-?-?-?- KW-no concerns. no cramping/vb. AFP discussed. formal US ordered. 05/27/23 -?-?-?-?-?-?-?-?-?-?-?-?- 17w 5d 247 lb (+5 lb) 118/80 Negative -?-?-?-?-?-?-?-?-?-?-?-?- Negative 150 -?-?-?-?-?-?-?-?-?-?-?-?- LC- no concerns. no vb/cramping. anatomy scheduled 06/24/23 -?-?-?-?-?-?-?-?-?-?-?-?- 21w 5d 252 lb 2 oz (+10 lb 2 oz) 131/79 -?-?-?-?-?-?-?-?-?-?-?-?- 148 -?-?-?-?-?-?-?-?-?-?-?-?- LC- no concerns. no vb/cramping. needs to return for additional images to complete anatomy. 07/22/23 -?-?-?-?-?-?-?-?-?-?-?-?- 25w 5d 259 lb 4 oz (+17 lb 4 oz) 133/74 Negative -?-?-?-?-?-?-?-?-?-?-?-?- Negative 145 26 -?-?-?-?-?-?-?-?-?-?-?-?- SM- no vb lof lo f good fm no regular ctx 08/19/23 -?-?--?-?-?-?-?-?-?-?-?-?- 29w 5d 261 lb 6 oz (+19 lb 6 oz) 120/78 Negative -?-?-?-?-?-?-?-?-?-?-?-?- Negative 140 31 -?-?-?-?-?-?-?-?-?-?-?--?- SM- no vb lof go od fm no regualr ctx tdap given discussed - declined, discussed labor expectations and testing. 09/02/23 -?-?-?-?-?-?-?-?-?-?-?-?- 31w 5d 262 lb 2 oz (+20 lb 2 oz) 126/70 -?-?-?-?-?-?-?-?-?-?-?-?- 140 32 -?-?-?-?-?-?-?-?-?-?-?-?- SM- no vb lof go od fm no regular ctx 09/16/23 -?-?-?-?-?-?-?-?-?-?-?-?- 33w 5d 263 lb 8 oz (+21 lb 8 oz) 132/77 Negative -?-?-?-?-?-?-?-?-?-?-?-?- Negative 145 33 -?-?-?-?-?-?-?-?-?-?-?-?- JV- has bpp toda y and twice weekly. IOL at 38 weeks for ch htn. 09/30/23 -?-?-?-?-?-?-?-?-?-?-?-?- 35w 5d 264 lb 4 oz (+22 lb 4 oz) 120/80 Negative -?-?-?-?-?-?-?-?-?-?-?-?- Negative 140 37 0.5 -?-?-?-?-?-?-?-?-?-?-?-?- SM- no vb lof go od fm no regular ctx discussed cytotec IOL 38 IOL scheduled for tuesday night 10/17 NST FHR Rate Baby A Baseline: 135 Variability:: Moderate Accelerations:: 15 x 15 Decelerations:: None NST Reactive:: Yes FHR Category:: Category I Uterine Activity:: none Assessment & Plan (1) AMA (advanced maternal age) multigravida 35+: COMMENT: declined genetic screening. (2) Chronic hypertension affecting : COMMENT: Labetalol prior to :Pre E labs at [facility] WNL, 2x weekly bpps 32 on, IOL 38. growth 32 and 36 weeks. growth 32 weeks was 18th% (3) Supervision of high risk , antepartum: COMMENT: PRR MANDI 10/30/23 girl Mao Spouse Angel (4) : QUALIFIERS: Weeks of gestation: 35 weeks Qualified Code(s): Z3A.35 - 35 weeks gestation of COMMENT: declined afp, NIPT and Carrier, nl anatomy and echo. IOL scheduled for 10/17/23 7pm. PLAN: Plan Patient presents for triage evaluation secondary to 6/8 BPP, needing NST in WP due to after hours. FHT: Moderate variability reactive no decelerations category I tracing [place]: no Contractions Assessment and plan: Reactive NST, reassuring maternal and status patient discharged to home to follow-up in the office. See problem list details for additional plan information. Charges/Coding Multi Select Codes Urinary/Genital Urinary/Genital CPT Codes: 30990-32 non-stress test Interp
== END 2023-09-26 20:45 | disposition home or self-care (01) ==
LOC: WPOUT 19:01 → WP 19:02
PROVIDERS: PCP Internal Medicine; Visit Provider Registered Nurse
DX: O09.513 Supervision of elderly primigravida, third trimester (principal); Z3A.35 35 weeks gestation of pregnancy; O16.3 Unspecified maternal hypertension, third trimester; Z90.49 Acquired absence of other specified parts of digestive tract
CPT/HCPCS: 59025; 59050

== ENCOUNTER → 2023-09-26 | Outpatient (CLI) | payer BC, SELFPAY ==
--- NOTE | 2023-09-26 18:05 | US_ITS ---
STUDY: OBSTETRICAL ULTRASOUND - BIOPHYSICAL PROFILE REASON FOR EXAM: Female, 38 years old WELL BEING LMP: 01/23/2023 PRIOR ULTRASOUND: 09/23/2023 TECHNIQUE: Transabdominal TECHNICAL QUALITY: Adequate. FINDINGS: There is a single intrauterine fetus. The fetus is in a cephalic presentation. There is demonstrated cardiac activity with a heart rate of 147 bpm. There is a normal amniotic fluid volume. The largest amniotic fluid pocket measures 5.4 cm. The amniotic fluid index (LESLIE) is 12.3 cm. The placenta is anterior in location and is not low lying. There are Grade 1 placental changes. Age by LMP: 35 weeks, 1 days. MANDI by LMP: 10/30/2023. BIOPHYSICAL PROFILE: Breathing Movements (FBM): 0 Gross Body Movements (GBM): 2 Tone (FT): 2 Amniotic Fluid Volume (AFV): 2 TOTAL SCORE: 6 / 8 US/Biophysical Prof W/O Non Stres IMPRESSION: biophysical profile of 05/05. Electronically Signed: Emory Ness MD at 22:13 EDT ,
== END | disposition home or self-care (01) ==
LOC: US 18:02
PROVIDERS: PCP Internal Medicine; Visit Provider Obstetrics & Gynecology
DX: Z34.93 Encounter for supervision of normal pregnancy, unspecified, third trimester (principal); Z3A.35 35 weeks gestation of pregnancy
CPT/HCPCS: 76819

== ENCOUNTER → 2023-09-30 | Outpatient (CLI) | payer BC, SELFPAY ==
--- NOTE | 2023-09-30 11:46 | US_ITS ---
STUDY: OBSTETRICAL ULTRASOUND - BIOPHYSICAL PROFILE REASON FOR EXAM: Female, 38 years old chronic hypertension LMP: January 23, 2023. PRIOR ULTRASOUND: Comparison is made with study dated September 26, 2023. TECHNIQUE: Transabdominal TECHNICAL QUALITY: Adequate. FINDINGS: There is a single intrauterine fetus. The fetus is in a cephalic presentation. There is demonstrated cardiac activity with a heart rate of 138 bpm. There is a normal amniotic fluid volume. The largest amniotic fluid pocket measures 4.7 cm x 2.2 cm. The amniotic fluid index (LESLIE) is 11.4 cm. The placenta is anterior in location and is not low lying. There are Grade 0 placental changes. Age by LMP: 35 weeks, 5 days. MANDI by LMP: October 30, 2023. age by prior US: 34 weeks, 2 days. MANDI by prior US: November 09, 2023. BIOPHYSICAL PROFILE: Breathing Movements (FBM): 2 Gross Body Movements (GBM): 2 Tone (FT): 2 Amniotic Fluid Volume (AFV): 2 TOTAL SCORE: 8 / 8 US/Biophysical Prof W/O Non Stres IMPRESSION: Normal biophysical profile of 8/8. Electronically Signed: Cliff Rush MD at 14:57 EDT ,
== END | disposition home or self-care (01) ==
PROVIDERS: PCP Internal Medicine; Referring Provider Obstetrics & Gynecology; Visit Provider Obstetrics & Gynecology
DX: O10.919 Unspecified pre-existing hypertension complicating pregnancy, unspecified trimester (principal); Z3A.00 Weeks of gestation of pregnancy not specified
CPT/HCPCS: 76819; 87081

== ENCOUNTER → 2023-10-03 | Outpatient (CLI) | payer BC, SELFPAY ==
--- NOTE | 2023-10-03 18:10 | US_ITS ---
INDICATION: WELL BEING EXAMINATION: Ultrasound US Biophysical Profile W/O Nonst TECHNIQUE: Transabdominal pelvic ultrasound was performed. COMPARISON: Prior study dated: 09/30/2023 LMP: 01/23/2023 Beta-hCG: Unknown. Provided EGA: 36 weeks 1 day FINDINGS: INTRAUTERINE GESTATION(s): Single. HEART MOTION is 150 bpm. AMNIOTIC FLUID INDEX (LESLIE): 12.93 cm BIOPHYSICAL PROFILE (BPP): 07/05 -- Breathin/2. -- Movement: 2/2. -- Tone: 2/2. --LESLIE: 2/2. PRESENTATION: Cephalic PLACENTA: Anterior. There is no placenta previa or abruption. CERVIX: The cervix is closed. FREE FLUID: None. US/Biophysical Prof W/O Non Stres IMPRESSION: Single live intrauterine with biophysical profile 07/05. No acute abnormality. Electronically Signed: Cheo Santana MD at 23:08 EST ,
== END | disposition home or self-care (01) ==
LOC: US 18:05
PROVIDERS: PCP Internal Medicine; Visit Provider Obstetrics & Gynecology
DX: Z34.93 Encounter for supervision of normal pregnancy, unspecified, third trimester (principal); Z3A.36 36 weeks gestation of pregnancy
CPT/HCPCS: 76819

== ENCOUNTER → 2023-10-07 | Outpatient (CLI) | payer BC, SELFPAY ==
--- NOTE | 2023-10-07 11:41 | US_ITS ---
STUDY: OBSTETRICAL ULTRASOUND - BIOPHYSICAL PROFILE REASON FOR EXAM: Female, 38 years old chroic hypertension LMP: 01/23/2023 PRIOR ULTRASOUND: 10/03/2023 TECHNIQUE: Transabdominal TECHNICAL QUALITY: Adequate. FINDINGS: There is a single intrauterine fetus. The fetus is in a cephalic presentation. There is demonstrated cardiac activity with a heart rate of 133 bpm. There is a normal amniotic fluid volume. The largest amniotic fluid pocket measures 4.8 cm. The amniotic fluid index (LESLIE) is 12.4 cm. The placenta is anterior in location and is not low lying. There are Grade 1 placental changes. Age by LMP: 36 weeks, 5 days. MANDI by LMP: 10/30/2023. BIOPHYSICAL PROFILE: Breathing Movements (FBM): 2 Gross Body Movements (GBM): 2 Tone (FT): 2 Amniotic Fluid Volume (AFV): 2 TOTAL SCORE: US/Biophysical Prof W/O Non Stres IMPRESSION: Normal biophysical profile of 07/05. Electronically Signed: Emory Ness MD at 23:33 EST ,
== END | disposition home or self-care (01) ==
LOC: US 11:40
PROVIDERS: PCP Internal Medicine; Referring Provider Obstetrics & Gynecology; Visit Provider Obstetrics & Gynecology
DX: O10.919 Unspecified pre-existing hypertension complicating pregnancy, unspecified trimester (principal); Z3A.00 Weeks of gestation of pregnancy not specified
CPT/HCPCS: 76819

== ENCOUNTER → 2023-10-10 | Outpatient (CLI) | payer BC, SELFPAY ==
--- NOTE | 2023-10-10 18:00 | US_ITS ---
STUDY: OBSTETRICAL ULTRASOUND - BIOPHYSICAL PROFILE REASON FOR EXAM: Female, 38 years old HYPERTENSION LMP: January 23, 2023 PRIOR ULTRASOUND: October 07, 2023 TECHNIQUE: Transabdominal. TECHNICAL QUALITY: Adequate. FINDINGS: There is a single intrauterine fetus. The fetus is in a cephalic presentation. There is demonstrated cardiac activity with a heart rate of 147 bpm. There is a normal amniotic fluid volume. The largest amniotic fluid pocket measures 5.8 cm. The amniotic fluid index (LESLIE) is 12.2 cm. The placenta is anterior in location and is not low lying. There are Grade 1 placental changes. Age by LMP: 37 weeks, 1 days. MANDI by LMP: October 30, 2023. BIOPHYSICAL PROFILE: Breathing Movements (FBM): 2 Gross Body Movements (GBM): 2 Tone (FT): 2 Amniotic Fluid Volume (AFV): 2 TOTAL SCORE: / US/Biophysical Prof W/O Non Stres IMPRESSION: Normal biophysical profile of 07/05. Electronically Signed: Aayush Holm MD at 21:59 EST ,
--- NOTE | 2023-10-10 18:01 | US_ITS ---
STUDY: SECOND AND THIRD TRIMESTER OBSTETRICAL ULTRASOUND - LIMITED REASON FOR EXAM: Female, 38 years old GROWTH LMP: 01/23/2023 PRIOR ULTRASOUND: 10/07/2023 TECHNIQUE: Transabdominal TECHNICAL QUALITY: Adequate. FINDINGS: There is a single intrauterine fetus. The fetus is in a cephalic presentation. There is demonstrated cardiac activity with a heart rate of 137 bpm. There is a normal amniotic fluid volume. The largest amniotic fluid pocket measures 3.4 cm. The amniotic fluid index (LESLIE) is 11.6 cm. The placenta is anterior in location and is not low lying. There are Grade 1 placental changes. The cervix measures 3.7 cm in length. BIOMETRY: BPD: 8.6 cm: 34 weeks, 5 days HC: 32.3 cm: 36 weeks, 4 days AC: 33.8 cm: 37 weeks, 5 days FL: 7.1 cm: 36 weeks, 2 days Age by LMP: 37 weeks, 1 days. MANDI by LMP: 10/30/2023. age by prior US: weeks, days. MANDI by prior US: . age by current US: 36 weeks, 2 days. MANDI by current US: 11/05/2023. Estimated weight: 3065 grams, +/- 460 grams, 50 percentile. Gender: US/OB Limited With Biometrics IMPRESSION: Living intrauterine of 36 weeks 2 days as described above. Electronically Signed: Emory Ness MD at 21:55 EST ,
== END | disposition home or self-care (01) ==
LOC: US 17:59
PROVIDERS: PCP Internal Medicine; Referring Provider Obstetrics & Gynecology; Visit Provider Obstetrics & Gynecology
DX: O16.3 Unspecified maternal hypertension, third trimester (principal); Z3A.36 36 weeks gestation of pregnancy
CPT/HCPCS: 76816; 76819

== ENCOUNTER → 2023-10-14 | Outpatient (CLI) | payer BC, SELFPAY ==
--- NOTE | 2023-10-14 11:32 | US_ITS ---
INDICATION: chronic hypertension EXAMINATION: Ultrasound US Biophysical Profile W/O Nonst TECHNIQUE: Transabdominal pelvic ultrasound was performed. COMPARISON: Prior study dated: 10/10/2023 LMP: Unknown. Beta-hCG: Unknown. Provided EGA: None. FINDINGS: INTRAUTERINE GESTATION(s): Single. HEART MOTION is 162 bpm. AMNIOTIC FLUID INDEX (LESLIE): 15.3, largest pocket measures 6.1 cm BIOPHYSICAL PROFILE (BPP): 07/05 -- Breathin/2. -- Movement: 2/2. -- Tone: 2/2. --LESLIE: 2/2. PRESENTATION: Cephalic PLACENTA: Anterior. There is no placenta previa or abruption. CERVIX: The cervix is not visualized. MATERNAL OVARIES: No adnexal masses. FREE FLUID: None. US/Biophysical Prof W/O Non Stres IMPRESSION: Normal biophysical profile of 07/05. Electronically Signed: Wilver Wilburn MD at 14:24 EST ,
== END | disposition home or self-care (01) ==
LOC: US 11:30
PROVIDERS: PCP Internal Medicine; Referring Provider Obstetrics & Gynecology; Visit Provider Obstetrics & Gynecology
DX: O10.919 Unspecified pre-existing hypertension complicating pregnancy, unspecified trimester (principal)
CPT/HCPCS: 76819

== ENCOUNTER 2023-10-17 18:45 | Inpatient (IN) | payer BC, SELFPAY ==
[2023-10-17 19:11] VITALS: BMI 46.5
[2023-10-17 19:46] VITALS: BP 123/61; PULSE 81; TEMP 37; O2SAT 97
[2023-10-17 19:51] VITALS: PULSE 73; O2SAT 97
[2023-10-17 19:56] VITALS: PULSE 77; O2SAT 97
[2023-10-17 19:57] LABS: Absolute Lymphocyte Count 2.49 X10^3/uL (0.83-4.51); Absolute Neutrophil Count 8.2 X10^3/uL (2.0-7.7); Basophil# 0.03 X10^3/uL; Basophil% 0.3 % (0-1); Eosinophil# 0.07 X10^3/uL; Eosinophils% 0.6 % (0-5); Hematocrit 36.8 % (37-47); Hemoglobin 12.3 g/dL (12.0-15.0); Lymphocyte # 2.49 X10^3/ul (0.83-4.51); Lymphocyte % 21.2 % (19-41); Mean Corp Hgb Conc 33.4 g/dL (32-36); Mean Corpuscular Hgb 28.7 pg (27.0-32.0); Mean Corpuscular Volume 85.8 fL (81-99); Mean Platelet Vol. 10.3 fl (6.2-12.0); Monocyte# 0.84 X10^3/uL; Monocyte% 7.2 % (0-10); NRBC Flagged by Analyzer 0 % (0-5); Neutrophil % 69.9 % (47-70); Platelet Count 297 K/mm3 (150-450); RBC Distribution Width CV 13.9 % (11.6-14.6); RBC Distribution Width SD 43.2 fl (35.1-43.9); Red Blood Count 4.29 M/mm3 (4.2-5.4); White Blood Count 11.7 K/mm3 (4.4-11.0)
[2023-10-17 20:01] VITALS: PULSE 79; O2SAT 97
[2023-10-17 20:43] LABS: Syphilis Antibodies Non-reactive
[2023-10-17] MEDS: miSOPROStol 25 MCG TABLET VAGINAL (20:44)
--- NOTE | 2023-10-17 20:51 | HP.PCM.OB_ITS ---
HPI - General General Date of Admission: 10/17/23 HPI Narrative ARIN RICE, is a 38 y/o @ 38 weeks 1 day who presents to L&D for IOL due to chronic htn on labetalol. Her nurse just checked her cervix and called it and has already administered her 25 mg of cytotec Maternal Data Information MANDI Calculator Estimated Delivery Date Method Current WG Current Estimate 10/30/23 LMP (Certain) 38w 1d Other Estimates 11/01/23 Ultrasound #1 37w 6d PFSH PFSH Medical History Arthritis Bilateral carpal tunnel syndrome Environmental allergies Hypertension Hypertension Infertility, anovulation Morbid obesity PCOS (polycystic ovarian syndrome) Screening for thyroid disorder Simple endometrial hyperplasia without atypia Home Medications montelukast 10 mg tablet (Singulair) 10 mg PO DAILY 12/21/19 [History Last Taken 09/25/23 20:00] fluticasone propionate 93 mcg/actuation breath activated aerosol (Xhance) 1 spray intranasal Q12H 11/13/21 [History Last Taken 09/25/23 08:00] hydrochlorothiazide 25 mg tablet See Rx Instructions .Route .COMPLEX #90 tabs 05/02/23 [Rx Last Taken 09/26/23 08:30] labetalol 100 mg tablet 100 mg PO BID #180 tabs 05/03/23 [Rx Last Taken 09/26/23 08:30] vitamin#30 30 mg iron-10 mg iron-folic acid 1 mg-omg3 capsule 1 cap PO DAILY 07/29/23 [History Last Taken 09/26/23 08:30] Allergy/AdvReac Type Severity Reaction Status Date / Time Environmental Allergies: Allergy Intermediate Rash Verified 10/14/23 08:45 Uncoded amoxicillin Allergy Hives Verified 10/14/23 08:45 Family History Father Heart disease Hypertension Mother Hypertension Cancer, Onset Age: 60 Grandmother Hypertension Myocardial infarction CVA (cerebral vascular accident) Congestive heart failure Lupus Surgical History H/O cervical polypectomy H/O colonoscopy Hx of cholecystectomy S/P dilation and curettage Social History adopted: No household members: spouse current occupational status: employed 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 current occupational exposures/hazards: No pets and animals: Yes pets and animals: dog(s) history of recent travel: No sexually active: Yes Smoking Status: Never smoker alcohol intake: current alcohol intake frequency: holidays/special occasions only details: Social substance use type: does not use caffeine: Yes Type: coffee Number of servings: 2 what type of physical activity do you participate in: none seatbelt use: always do you feel safe at home: Yes additional social history: Vqzbwrh-Mngjss-Nswvcu Salt 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 History 1 Elective abortions Hx Para 0 Spontaneous abortions Hx # Term Pregnancies Ectopic pregnancies Hx # Pregnancies Multiple births # of living children Visit Details Expected Delivery Route/Plan Labor Preferences- CB/BF classes: enc labor support person: Jose labor intervention preferences: none pain management options preferred: epidural cut cord/dad catch: might be interested : no PP control planned: [] discussed possible routes of delivery and associated risks: [] special requests: [] Plans Covid status: discussed Flu vaccine: declined Tdap vaccine: given Rhogam: na LARC form signed: [] movement and labor precautions reviewed. Problem list reviewed and updated with the most current plan of care details and appropriate orders placed. Relevant counseling for the gestational age provided. Continue routine care and follow up unless otherwise noted in visit notes/problem list details OB Flowsheet Initial Weight: 242 lb Date -?-?-?-?-?-?-?-?-?-?-?-?- EGA Weight BP Urine Prot -?-?-?-?-?-?-?-?-?-?-?-?- Glucose FHR FuHt Pres Dilation -?-?-?-?-?-?-?-?-?-?-?-?- Effaced St Visit Note 04/01/23 -?-?-?-?-?-?-?-?-?-?-?-?- 9w 5d 242 lb 6 oz (+6 oz) 126/83 -?-?-?-?-?-?-?-?-?-?-?-?- 170 -?-?-?-?-?-?-?-?-?-?-?-?- JV- CRL consiste nt with LMP. declines NIPT. 04/29/23 -?-?-?-?-?-?-?-?-?-?-?-?- 13w 5d 241 lb (-16 oz) 124/80 Negative -?-?-?-?-?-?-?-?-?-?-?-?- Negative 160 -?-?-?-?-?-?-?-?-?-?-?-?- KW-no concerns. no cramping/vb. AFP discussed. formal US ordered. 05/27/23 -?-?-?-?-?-?-?-?-?-?-?-?- 17w 5d 247 lb (+5 lb) 118/80 Negative -?-?-?-?-?-?-?-?-?-?-?-?- Negative 150 -?-?-?-?-?-?-?-?-?-?-?-?- LC- no concerns. no vb/cramping. anatomy scheduled 06/24/23 -?-?-?-?-?-?-?-?-?-?-?-?- 21w 5d 252 lb 2 oz (+10 lb 2 oz) 131/79 -?-?-?-?-?-?-?-?-?-?-?-?- 148 -?-?-?-?-?-?-?-?-?-?-?-?- LC- no concerns. no vb/cramping. needs to return for additional images to complete anatomy. 07/22/23 -?-?-?-?-?-?-?-?-?-?-?-?- 25w 5d 259 lb 4 oz (+17 lb 4 oz) 133/74 Negative -?-?-?-?-?-?-?-?-?-?-?-?- Negative 145 26 -?-?-?-?-?-?-?-?-?-?-?-?- SM- no vb lof lo f good fm no regular ctx 08/19/23 -?-?-?-?-?-?-?-?-?-?-?-?- 29w 5d 261 lb 6 oz (+19 lb 6 oz) 120/78 Negative -?-?-?-?-?-?-?-?-?-?-?-?- Negative 140 31 -?-?-?-?-?-?-?-?-?-?-?-?- SM- no vb lof go od fm no regualr ctx tdap given discussed - declined, discussed labor expectations and testing. 09/02/23 -?-?-?-?-?-?-?-?-?-?-?-?- 31w 5d 262 lb 2 oz (+20 lb 2 oz) 126/70 -?-?-?-?-?-?-?-?-?-?-?-?- 140 32 -?-?-?-?-?-?-?-?-?-?-?-?- SM- no vb lof go od fm no regular ctx 09/16/23 -?-?-?-?-?-?-?-?-?-?-?-?- 33w 5d 263 lb 8 oz (+21 lb 8 oz) 132/77 Negative -?-?-?-?-?-?-?-?-?-?-?-?- Negative 145 33 -?-?-?-?-?-?-?-?-?-?-?-?- JV- has bpp toda y and twice weekly. IOL at 38 weeks for ch htn. 09/30/23 -?-?-?-?-?-?-?-?-?-?-?-?- 35w 5d 264 lb 4 oz (+22 lb 4 oz) 120/80 Negative -?-?-?-?-?-?-?-?-?-?-?-?- Negative 140 37 0.5 -?-?-?-?-?-?-?-?-?-?-?-?- SM- no vb lof go od fm no regular ctx discussed cytotec IOL 38 IOL scheduled for tuesday night 10/1710/07/23 -?-?-?-?-?-?-?-?-?-?-?-?- 36w 5d 268 lb 8 oz (+26 lb 8 oz) 132/81 Negative -?-?-?-?-?-?-?-?-?-?-?-?- Negative 155 39 -?-?-?-?-?-?-?-?-?-?-?-?- JV- no lof, vagi nal bleeding, or dec fm. bpp today at noon. has growth scan next week. 10/14/23 -?-?-?-?-?-?-?-?-?-?-?-?- 37w 5d 265 lb 8 oz (+23 lb 8 oz) 122/82 Negative -?-?-?-?-?-?-?-?-?-?-?-?- Negative 145 39 -?-?-?-?-?-?-?-?-?-?-?-?- SM- no vb lof go od fm n oregular ctx schedule for IOL ROS Constitutional Constitutional: Denies change in weight, fatigue, fever(s), headache(s), poor appetite or weakness Eyes Eyes: Denies blurry vision, change in vision, seeing flashes or spots in vision ENT HEENT: Denies dizziness, headache(s), loss taste/smell or sore throat Cardiovascular Cardiovascular: Denies chest pain, dizziness, dyspnea, irregular heart rhythm, leg edema, palpitations, rapid heart rate or vomiting Respiratory/Chest Respiratory/Chest: Denies chest tightness, cough, dyspnea or breast pain Gastrointestinal Gastrointestinal: Denies abdominal pain, anorexia, constipation, cramping, efrain rrhea, hemorrhoids, vomiting or weight changes Genitourinary Genitourinary: Denies dysuria, flank pain, genital lesions, genital pain, urinary frequency or urinary urgency Musculoskeletal Musculoskeletal: Denies back pain, difficulty walking, joint pain, limited range of motion, muscle cramps or numbness Integumentary Integumentary: Denies lesions or unusual bruising Neurologic Neurologic: Denies abnormal movements, abnormal speech, dizziness, numbness, seizure-like activity or syncope Psychiatric Psychiatric: Denies anxiety, behavioral changes, change in appetite, change in libido, cognitive impairment, confusion, depression, difficulty concentrating, hallucinations or suicidal thoughts Endocrine Endocrinology: Denies excessive sweating, polydipsia or polyuria Hematologic/Lymphatic Hematologic/Lymphatic: Denies easy bleeding, easy bruising or lymphadenopathy Allergic/Immunologic Allergic/Immunologic: Denies itchy eyes, lip swelling, seasonal rhinorrhea, rhinitis, throat swelling, tongue swelling, eczemia, wheezing or asthma Vital Signs Vital Signs Vital Signs: 10/17/23 19:46 10/17/23 19:46 10/17/23 19:46 Temperature Pulse Rate 81 Blood Pressure 123/61 H BP Systolic 123 BP Diastolic 61 Pulse Ox 97 10/17/23 19:46 10/17/23 19:51 10/17/23 19:51 Temperature 98.6 F Pulse Rate 73 Blood Pressure BP Systolic BP Diastolic Pulse Ox 97 10/17/23 19:56 10/17/23 19:56 10/17/23 20:01 Temperature Pulse Rate 77 79 Blood Pressure BP Systolic BP Diastolic Pulse Ox 97 10/17/23 20:01 Temperature Pulse Rate Blood Pressure BP Systolic BP Diastolic Pulse Ox 97 Weight Weight: 263 lb 0.183 oz Body Mass Index (BMI) 46.5 Physical Exam Const alert, oriented x3, no apparent distress and healthy appearing General Appearance: cooperative; Negative for anxious HEENT normocephalic Face and Sinus: normal facial exam Eyes EOMs intact bilaterally and no scleral icterus General Eye: normal appearance of both eyes Neck full ROM and supple Lymph Lymphatic: no lymphadenopathy noted Chest Chest: abnormal inspection of the chest Resp normal respiratory effort Effort and Inspection: able to speak in complete sentences Cardio regular rate GI soft to palpation and non-tender Inspection: gravid Palpation: soft; Negative for tender Back/Spine no CVA tenderness Extremity normal to inspection, full ROM and no clubbing, cyanosis or edema General Extremity: Negative for calf tenderness or edema Skin Lesions: no lesions Rashes: no rashes Psych mental status grossly normal Labs Labs Labs: Blood Type A POSITIVE Antibody Screen NEGATIVE Hct 36.8 % (37-47) L Hgb 12.3 g/dL (12.0-15.0) Obstetrics Ultrasound Syphilis Total Ab Non-reactive Rubella IgG Antibody Reactive (Nonreactive) Hep Bs Antigen Non-Reactive (Nonreactive) Hepatitis C Antibody Non-Reactive (Nonreactive) HIV 1&2 Antibody Non-Reactive (Nonreactive) Glucose 1 Hr 50 gm 96 mg/dL (70-140) Assessment & Plan (1) Obesity affecting : COMMENT: early glucose normal (2) AMA (advanced maternal age) multigravida 35+: COMMENT: declined genetic screening. (3) Chronic hypertension affecting : COMMENT: Labetalol prior to :Pre E labs at [facility] WNL, 2x weekly bpps 32 on, IOL 38. growth 32 and 36 weeks. growth 32 weeks was 18th%-growth at 36 was 50% (4) Supervision of high risk , antepartum: COMMENT: PRR MANDI 10/30/23 girl ([place] name) Spouse Angel (5) : QUALIFIERS: Weeks of gestation: 37 weeks Qualified Code(s): Z3A.37 - 37 weeks gestation of COMMENT: GBS Negative, declined afp, NIPT and Carrier, nl anatomy and echo. IOL scheduled for 10/17/23 7pm. (6) ALEX (obstructive sleep apnea): PLAN: Plan Patient presents IOL, plan management for with cytotec. pitocin/arom prn. Pain management: plans epidural. GBS negative. Management of any complications: chronic htn on labetalol. give pm dose if did not already take it I have reviewed the [facility] and made any clinically relevant updates.
[2023-10-17] MEDS: Labetalol 100 MG Tablet PO (21:40)
[2023-10-17] MEDS: CHLORHEXIDINE GLUC 2% CLOTH 1 EACH TOWELETTE TOPICAL (21:40)
[2023-10-17 21:42] VITALS: BP 139/75; PULSE 77; PULSE 78; TEMP 36.8; O2SAT 96
[2023-10-18] VITALS (68 sets, daily range): BP systolic 113–161; BP diastolic 53–98; PULSE 67–99; RESP 16–18; TEMP 35.8–36.8; O2SAT 87–100
[2023-10-18] MEDS: LACTATED RINGERS 500 ML 999 ML IV ×2 (00:58→01:59)
[2023-10-18] MEDS: Lactated Ringers 1,000 ML 50 ML IV (00:58)
[2023-10-18] MEDS: Ondansetron 4 MG/2 ML Vial IV (02:00)
[2023-10-18] MEDS: fentaNYL-bupivacaine (epidural) 100 ML BAG EPIDURAL (02:43)
[2023-10-18] MEDS: Oxytocin 15 Units/NS 250ml 15 UNITS/250 ML IV.SOLN 83 UNITS IV (04:30)
[2023-10-18] MEDS: Oxytocin 10 UNITS/ML Vial IM (04:30)
--- NOTE | 2023-10-18 04:45 | EX.PCM.OBRPT ---
Assessment & Plan (1) Obesity affecting : COMMENT: early glucose normal (2) AMA (advanced maternal age) multigravida 35+: COMMENT: declined genetic screening. (3) Chronic hypertension affecting : COMMENT: Labetalol prior to :Pre E labs at NOB WNL, 2x weekly bpps 32 on, IOL 38. growth 32 and 36 weeks. growth 32 weeks was 18th%-growth at 36 was 50% (4) Supervision of high risk , antepartum: COMMENT: PRR MANDI 10/30/23 girl ([place] name) Spouse Angel (5) : QUALIFIERS: Weeks of gestation: 37 weeks Qualified Code(s): Z3A.37 - 37 weeks gestation of COMMENT: GBS Negative, declined afp, NIPT and Carrier, nl anatomy and echo. IOL scheduled for 10/17/23 7pm. (6) ALEX (obstructive sleep apnea): Maternal Data Information MANDI Calculator Estimated Delivery Date Method Current WG Current Estimate 10/30/23 LMP (Certain) 38w 2d Other Estimates 11/01/23 Ultrasound #1 38w 0d Final MANDI: 10/30/23 Final MANDI Source: LMP Gestational age: 38 weeks 2 days Vaginal Delivery Maternal Presentation Maternal Presentation: Medically Indicated Induction Type of Induction: Cervidil Operative Information Date of Procedure: 10/18/23 Pre-Operative Diagnosis: 38 y/o @ 38 weeks 2 days, chronic hypertension on medication Post-Operative Diagnosis: 38 y/o @ 38 weeks 2 days, chronic hypertension on medication Surgery / Procedure Performed: Spontaneous Vaginal Delivery Type of Anesthesia: Epidural Drain: Menendez to straight drain Estimated Blood Loss: 100cc Time of Delivery: 04:27 Findings Description of Procedure: Patient began pushing and delivered the head in the WOODY presentation. The head was delivered atraumatically. The anterior and posterior shoulders delivered without complication followed by the rest of the infant and the was placed on the maternal abdomen. Delayed cord clamping was employed for approximately 60 seconds. Cord was clamped and cut and gentle traction was applied to the cord and the placenta delivered spontaneously immediately following it was noted to be intact with three-vessel cord. The perineum and vagina were inspected and noted to have a first degree laceration. The laceration was repaired with a 2-0 vicryl. EBL was 100 cc. Patient and infant tolerated delivery well. Presentation: Vertex Amniotic Membrane Rupture Type: Spontaneous Time of Membrane Rupture: 0100 Amniotic Fluid Description: Clear Placental Delivery Description: Spontaneous Placenta Disposition: [facility] Cord Vessel Description: 3 Vessels Cord Entanglement: None A Gender: Female (1 minute): 8 (5 minute): 9 Delayed Cord Clamping: Yes Post Vaginal Delivery Medications Given After Delivery: IM Pitocin Episiotomy Description: None Laceration: 1st degree Complication Complications: None Multi Select Codes Urinary/Genital Urinary/Genital CPT Codes: 05503 Vaginal Delivery [facility]
--- NOTE | 2023-10-18 04:49 | DCINST_ITS ---
Discharge Instructions Diet Discharge Diet: No restrictions Activity Discharge Activity: Return to Normal Activity, May Not Drive (while taking narcotic pain medications.) and May Shower May resume sexual activity in: 4-6 weeks Dressing / Incision Call your doctor if your incision/area has: Continuous Slow Oozing, Sudden Increased Bleeding, Increased Pain/ Swelling, Increased Redness and Foul Smelling Discharge Follow Up Care Please Follow Up With: Kristy Sorenson, When: Call [phone] to make an appointment with your doctor in 6 weeks. If you had elevated blood pressure or 4th degree laceration, you will need to be seen in 2 weeks. Test Results: Test results from this visit will be discussed in further detail at your follow- up appointment, if applicable. Discharge Plan Admission Admit Date/Time: 10/17/23 18:45 Attending Provider: Kristy Sorenson Primary Care Provider: Patricia Acevedo Discharge Orders/Prescriptions Prescriptions: No Action montelukast [Singulair] 10 mg tablet 10 mg PO DAILY Xhance 93 mcg/actuation aerosol breath activated 1 spray intranasal Q12H Rx Instructions: into each nostril PNV #[id number] 30 mg iron-10 mg iron-1 mg capsule 1 cap PO DAILY hydrochlorothiazide 25 mg tablet See Rx Instructions .ROUTE .COMPLEX Qty: 90 1RF Dose Instruction: take 1 tablet by mouth once daily Rx Instructions: take 1 tablet by mouth once daily labetalol 100 mg tablet 100 mg PO BID Qty: 180 3RF Referrals / Follow Up: Patricia Acevedo MD [Primary Care Provider] -
[2023-10-18] MEDS: Acetaminophen 500 MG Tablet 1000 MG PO ×3 (06:04→22:35)
[2023-10-18] MEDS: hydroCHLOROthiazide 25 MG Tablet PO (11:28)
[2023-10-18] MEDS: Labetalol 100 MG Tablet PO ×2 (11:28→22:35)
[2023-10-18] MEDS: Naproxen 500 MG Tablet PO (20:19)
[2023-10-19 04:09] VITALS: BP 117/56; PULSE 66; RESP 16; O2SAT 97
[2023-10-19 04:10] VITALS: BP 117/56; PULSE 61
[2023-10-19] MEDS: Acetaminophen 500 MG Tablet 1000 MG PO (04:54)
[2023-10-19] MEDS: Naproxen 500 MG Tablet PO (04:55)
--- NOTE | 2023-10-19 07:54 | PCM.PN.OB ---
Subjective Subjective Patient doing well without complaints. Tolerating PO. Ambulating and voiding without difficulty. Feeding well. Denies chest pain, shortness of breath, calf pain/swelling, fevers, chills, lightheadedness. Objective Data Objective Data Vital Signs: Vital Signs Temp Pulse Resp BP Pulse Ox O2 Del Method 98.3 F 61 16 117/56 L 97 Room Air 10/18/23 20:09 10/19/23 04:10 10/19/23 04:09 10/19/23 04:10 10/19/23 04:09 10/19/23 04:09 Oxygen Delivery Method Room Air Weight: 263 lb 0.183 oz Body Mass Index (BMI) 46.5 Intake & Output: Intake and Output for Last 24 Hours 10/17/23 10/18/23 10/19/23 23:59 23:59 23:59 Intake Total 1339.17 / 1339.17 Output Total 1700 / 1700 Balance -360.83 / -360.83 Lab / Micro Data 10/17/23 19:40 Physical Exam Const alert and oriented x3 HEENT normocephalic Eyes PERRL Neck full ROM Resp normal respiratory effort GI soft to palpation GI Narrative: FF below U Assessment & Plan (1) Spontaneous vaginal delivery: COMMENT: 10/18/22 girl JV (2) Chronic hypertension affecting : PLAN: Plan s/p PPD # 1 1. routine post delivery care 2. bottle feeding- support given 3. rh positive 4. rubella immune 5. BP stable, continue her home labetalol 6. home today
[2023-10-19 08:13] VITALS: TEMP 36.6
[2023-10-19 08:14] VITALS: BP 126/66; PULSE 70; RESP 16; TEMP 36.6
[2023-10-19] MEDS: Senna/Docusate Sodium 1 Tablet PO (09:51)
[2023-10-19] MEDS: hydroCHLOROthiazide 25 MG Tablet PO (09:52)
[2023-10-19] MEDS: Labetalol 100 MG Tablet PO (09:52)
== END 2023-10-19 10:51 | disposition home or self-care (01) | DRG 806 ==
PROVIDERS: Admitting Provider Obstetrics & Gynecology; PCP Internal Medicine; Referring Provider Obstetrics & Gynecology; Visit Provider Obstetrics & Gynecology
DX: O10.02 Pre-existing essential hypertension complicating childbirth (principal); Z37.0 Single live birth; O99.354 Diseases of the nervous system complicating childbirth; G47.33 Obstructive sleep apnea (adult) (pediatric); O99.214 Obesity complicating childbirth; O70.0 First degree perineal laceration during delivery; Z79.899 Other long term (current) drug therapy; Z3A.38 38 weeks gestation of pregnancy; E66.8 Other obesity
CPT/HCPCS: 59025; 59050; 85025; 86780; 86850; 86900; 86901; 99221; J7120; G0378; J2405

== ENCOUNTER 2023-10-23 10:08 | Observation (INO) | payer BC, SELFPAY ==
[2023-10-23 10:08] VITALS: BP 130/81; PULSE 108; RESP 16; TEMP 37.4; O2SAT 100; BMI 44.4
--- NOTE | 2023-10-23 11:06 | EDS_ITS ---
HPI History of Present Illness Chief Complaint: Fever Narrative Narrative: 8-year-old female presenting with febrile illness. She states he had 103 temperature this morning. Patient felt like she had body aches and chills last evening. Patient reports that vaginal delivery of her child on the . She states that she had some spotting since then. She has been up and about more in the last day or so because her daughter had some appointments. She was told that this is probably why she is spotting however she developed a fever. She was sent to the ER by [facility] out of concern for possible retained products of conception associate with fevers that she is having increased spotting although the patient denies any abdominal pain, vaginal pain, dysuria. Patient states she has a cough, rhinorrhea, congestion as well as fever and chills. [facility] Medical History Arthritis Bilateral carpal tunnel syndrome Chronic hypertension affecting Environmental allergies Hypertension Hypertension Infertility, anovulation Morbid obesity PCOS (polycystic ovarian syndrome) Simple endometrial hyperplasia without atypia Spontaneous vaginal delivery Home Medications montelukast 10 mg tablet (Singulair) 10 mg PO DAILY 12/21/19 [History Last Taken 09/25/23 20:00] fluticasone propionate 93 mcg/actuation breath activated aerosol (Xhance) 1 spray intranasal Q12H 11/13/21 [History Last Taken 09/25/23 08:00] hydrochlorothiazide 25 mg tablet See Rx Instructions .Route .COMPLEX #90 tabs 05/02/23 [Rx Last Taken 09/26/23 08:30] labetalol 100 mg tablet 100 mg PO BID #180 tabs 05/03/23 [Rx Last Taken 09/26/23 08:30] vitamin#30 30 mg iron-10 mg iron-folic acid 1 mg-omg3 capsule 1 cap PO DAILY 07/29/23 [History Last Taken 09/26/23 08:30] Allergy/AdvReac Type Severity Reaction Status Date / Time Environmental Allergies: Allergy Intermediate Rash Verified 10/23/23 10:11 Uncoded amoxicillin Allergy Hives Verified 10/23/23 10:11 Family History Father Heart disease Hypertension Mother Hypertension Cancer, Onset Age: 60 Grandmother Hypertension Myocardial infarction CVA (cerebral vascular accident) Congestive heart failure Lupus Surgical History H/O cervical polypectomy H/O colonoscopy Hx of cholecystectomy S/P dilation and curettage Social History adopted: No household members: spouse current occupational status: employed 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 current occupational exposures/hazards: No pets and animals: Yes pets and animals: dog(s) history of recent travel: No sexually active: Yes Smoking Status: Never smoker alcohol intake: current alcohol intake frequency: holidays/special occasions only details: Social substance use type: does not use caffeine: Yes Type: coffee Number of servings: 2 what type of physical activity do you participate in: none seatbelt use: always do you feel safe at home: Yes additional social history: [employer]rdg [employer] 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 ROS ROS ED Constitutional Constitutional ED: Reports chills and fever(s) Eyes Eyes: Denies change in vision or diplopia Cardiovascular Cardiovascular: Denies chest pain or palpitations Respiratory/Chest Respiratory/Chest: Reports cough; Denies dyspnea or dyspnea on exertion Gastrointestinal Gastrointestinal: Denies abdominal pain, nausea or vomiting Genitourinary Genitourinary ED: Reports other Details: Vaginal spotting ; Denies hematuria Musculoskeletal Musculoskeletal: Denies arthralgias or back pain Integumentary Denies abscess Neurologic Neurologic: Denies headache(s) or paresthesias Psychiatric Psychiatric: Denies anxiety or depression EXAM Physical Exam Const Vital Signs: 10/23/23 10:08 Temperature 99.3 F H Temperature Source Temporal Pulse Rate 108 H Respiratory Rate 16 Blood Pressure 130/81 H Blood Pressure Mean 97 Pulse Ox 100 Oxygen Delivery Method Room Air Positive well nourished General Appearance ED: NAD; Negative for pallor HEENT Reports moist mucous membranes Eyes PERRL and EOMs intact bilaterally Chest Wall inspection of chest normal Resp Auscultation: Negative for rales, rhonchi or wheezes Cardio regular rate and regular rhythm GI normal to inspection, nondistended, normoactive bowel sounds Neuro oriented x3 Sensorium / Orientation: alert Motor Exam: strength 5/5 throughout Psych mental status grossly normal Skin no rashes or lesions noted General Skin Exam: Negative for jaundice or pallor MDM MDM MDM Narrative Medical decision making narrative: Patient presenting with febrile illness. She does not have any significant abdominal pain. She has had a temperature of 102 Fahrenheit at home. She states she has congestion and cough. She is COVID and influenza negative. CBC was obtained and shows white blood cell count 20.6. Hemoglobin 11.9. Platelets are normal at 15. Lactic acid 0.9. LFTs are unremarkable. Urinalysis shows 500 leukocyte esterase, 5-10 red blood cells, 50-100 white blood cells and 4+ bacteria with no squamous epithelial cells. This is concerning for UTI. I also suspect there might be some contamination as the patient has had some vaginal spotting but there is no epithelial cells to note. CT of the abdomen pelvis was performed which shows no acute process. Discussed the case with Dr. Orozco initially we will try to get her home on a regimen of Augmentin and clindamycin after giving her gentamicin and clindamycin in the ED, however the patient is penicillin allergic and regimen did include Augmentin and clindamycin. Given this I spoke with Dr. Orozco again and she opted to have the patient admitted for IV antibiotics. She will continue to monitor her. Patient was amenable to this plan. Impression: 1. Endometritis 2. Leukocytosis 3. UTI Lab Data Attestation: I reviewed the patient's lab results. Labs: Laboratory Results - last 24 hr 10/23/23 10/23/23 11:10 11:40 WBC 20.6 H RBC 4.06 L Hgb 11.9 L Hct 35.7 L MCV 87.9 MCH 29.3 MCHC 33.3 RDW Std Deviation 44.2 H RDW Coeff of Ingrid 13.7 Plt Count 315 MPV 9.4 Immature Gran % (Auto) 1.800 H Neut % (Auto) 87.5 H Lymph % (Auto) 5.9 L [place] % (Auto) 4.6 Eos % (Auto) 0.0 Baso % (Auto) 0.2 Absolute Neuts (auto) 18.0 H Absolute Lymphs (auto) 1.21 Nucleated RBC % 0 Sodium 137 Potassium 3.1 L Chloride 101 Carbon Dioxide 27.0 Anion Gap 9 BUN 10 Creatinine 0.98 Estim Creat Clear Calc 65.02 Est GFR (MDRD) Af Amer 82 Est GFR (MDRD) Non-Af 68 BUN/Creatinine Ratio 10.2 Glucose 107 H Lactic Acid 0.9 Calcium 8.7 Total Bilirubin 0.50 AST 17 ALT 26 Alkaline Phosphatase 113 Total Protein 6.8 Albumin 2.5 L Globulin 4.3 H Albumin/Globulin Ratio 0.6 L Urine Color Red Urine Clarity Cloudy Urine pH 7.0 Ur Specific [place] 1.010 Urine Protein 500 H Urine Glucose (UA) Normal Urine Ketones 5 H Urine Occult Blood 250 H Urine Nitrite Negative Urine Bilirubin Negative Urine Urobilinogen Normal Ur Leukocyte Esterase 500 H Urine RBC 5-10 SEEN Urine WBC 50-100 SEEN Ur Squamous Epith Cells 0 SEEN Urine Bacteria 4+ Urine Mucus 0 SEEN Radiography Diagnostic Testing: Clinical Impression(s) from Imaging Studies Abdomen/Pelvis CT 10/23/23 11:32 IMPRESSION: 2 cm likely left adrenal adenoma, no specific follow-up needed Enlarged uterus consistent with recent delivery No free intraperitoneal fluid, air, or suspicious adenopathy, normal appendix visualized Electronically Signed: Ananth Odell MD at 13:06 EST Reading Location ID and State: [address] [place] [address] , Service support , Chest X-Ray 10/23/23 11:50 IMPRESSION: Normal x-ray examination of the chest. Electronically Signed: Ananth Odell MD at 12:32 EST , Discharge Plan Triage Chief Complaint: Fever Other Complaint: Vag Bleeding ED Provider: Cesar Gary Dx/Rx/DC Orders Instructions: ED Cystitis Female Adult, ED Endometritis, Obstetric Prescriptions: No Action montelukast [Singulair] 10 mg tablet 10 mg PO DAILY Xhance 93 mcg/actuation aerosol breath activated 1 spray intranasal Q12H Rx Instructions: into each nostril PNV #[id number] 30 mg iron-10 mg iron-1 mg capsule 1 cap PO DAILY hydrochlorothiazide 25 mg tablet See Rx Instructions .ROUTE .COMPLEX Qty: 90 1RF Dose Instruction: take 1 tablet by mouth once daily Rx Instructions: take 1 tablet by mouth once daily labetalol 100 mg tablet 100 mg PO BID Qty: 180 3RF Primary Care Provider: Patricia Acevedo Referrals: Patricia Acevedo MD [Primary Care Provider] - Ruchi Orozco MD [Med Staff - Active Staff] - As soon as possible Disposition Disposition: Home, Self Care
[2023-10-23 11:21] LABS: Absolute Lymphocyte Count 1.21 X10^3/uL (0.83-4.51); Basophil# 0.05 X10^3/uL; Basophil% 0.2 % (0-1); Eosinophil# 0.01 X10^3/uL; Hematocrit 35.7 % (37-47); Hemoglobin 11.9 g/dL (12.0-15.0); Lymphocyte # 1.21 X10^3/ul (0.83-4.51); Lymphocyte % 5.9 % (19-41); Mean Corp Hgb Conc 33.3 g/dL (32-36); Mean Corpuscular Hgb 29.3 pg (27.0-32.0); Mean Corpuscular Volume 87.9 fL (81-99); Mean Platelet Vol. 9.4 fl (6.2-12.0); Monocyte# 0.94 X10^3/uL; Monocyte% 4.6 % (0-10); NRBC Flagged by Analyzer 0 % (0-5); Neutrophil # 18.03 X10^3/uL (2.7-7.7); Neutrophil % 87.5 % (47-70); Platelet Count 315 K/mm3 (150-450); RBC Distribution Width CV 13.7 % (11.6-14.6); RBC Distribution Width SD 44.2 fl (35.1-43.9); Red Blood Count 4.06 M/mm3 (4.2-5.4); White Blood Count 20.6 K/mm3 (4.4-11.0)
--- NOTE | 2023-10-23 11:32 | CT_ITS ---
STUDY: CT ABDOMEN AND PELVIS WITH CONTRAST REASON FOR EXAM: Female, 38 years old. fever RADIATION DOSAGE (If Supplied By Facility): CTDIvol = ( 17.04 ) mGy, DLP = ( 1258.06 ) mGycm TECHNIQUE: Transaxial images were obtained from the dome of the diaphragm to the symphysis pubis without oral contrast. IV 100mL Isovue-370 was administered. Sagittal and coronal images were reconstructed. Individualized dose optimization techniques were used for this CT. COMPARISON: None. FINDINGS: The visualized lung bases are unremarkable. The visualized portions of the heart are within normal limits. Normal liver. There is non-visualization of the gallbladder, which may be secondary to either contraction or a prior cholecystectomy. Normal spleen. Normal pancreas. There is a 2 cm smooth, low attenuation left adrenal mass, consistent with an adrenal adenoma. Normal right adrenal gland. Normal right kidney. Normal left kidney. Normal visualized stomach. Normal small intestine. Normal colon. The appendix is visualized and appears normal. Appendix seen on coronal recon images 69-74 Normal abdominal aorta. Normal inferior vena cava. Normal retroperitoneum. Normal urinary bladder. Uterus is enlarged, I suspect that the patient is recently as an ultrasound from 10/14/2023 showed an IUP. Normal abdominal wall. Normal osseous structures. CT/Abdomen/Pelvis W IV Cont ONLY IMPRESSION: 2 cm likely left adrenal adenoma, no specific follow-up needed Enlarged uterus consistent with recent delivery No free intraperitoneal fluid, air, or suspicious adenopathy, normal appendix visualized Electronically Signed: Ananth Odell MD at 13:06 EST ,
[2023-10-23 11:38] LABS: ALB/GLOB Ratio 0.6 RATIO (0.9-2.4); AST(SGOT) 17 U/L (15-37); Alanine Aminotransfer ALT/SGPT 26 U/L (13-56); Albumin, Serum 2.5 g/dL (3.2-5.0); Alkaline Phosphatase 113 U/L (45-117); Anion Gap 9 (5-15); BUN 10 mg/dL (7-18); BUN/Creat Ratio 10.2 RATIO (10-20); Calcium,Total 8.7 mg/dL (8.5-10.1); Chloride 101 mmol/L (98-107); Creatinine, Serum 0.98 mg/dL (0.55-1.02); EST Glomerular Filtration Rate 68 mL/min (>60); Est Glom Filt Rate - Afr Amer 82 mL/min (>60); Estimated Creatinine Clearance 65.02 ml/min; Globulin 4.3 g/dL (2.2-4.2); Glucose 107 mg/dL (74-106); Potassium 3.1 mmol/L (3.5-5.1); Protein, Total 6.8 g/dL (6.4-8.2); Sodium Level 137 mmol/L (136-145)
--- NOTE | 2023-10-23 11:50 | RAD_ITS ---
STUDY: X-RAY CHEST REASON FOR EXAM: Female, 38 years old. fever TECHNIQUE: Single AP portable view of the chest. COMPARISON: None. FINDINGS: The lungs are clear and expanded. There is no demonstrated pleural abnormality. Normal size heart. Normal mediastinum and eduard. Normal visualized pulmonary arteries. Normal visualized aortic arch and descending thoracic aorta. Normal visualized thoracic spine. Normal visualized ribs, clavicles, and shoulders. There is no demonstrated abnormality of the visualized soft tissue structures of the upper abdomen. RAD/Chest 1 View (Portable) IMPRESSION: Normal x-ray examination of the chest. Electronically Signed: Ananth Odell MD at 12:32 EST ,
[2023-10-23 12:26] LABS: Lactic Acid 0.9 mmol/L (0.4-1.9)
[2023-10-23 12:45] LABS: Color, Urine Red (Yellow); Glucose, Dipstick Normal (Normal); Ketone-Dipstick 5 mg/dl (Negative); Leukocyte Esterase-Dipstick 500 /ul (Negative); Mucous, Urine 0 SEEN /hpf (<or=2+); Nitrite-Dipstick Negative (Negative); Occult Blood-Urine 250 /ul (Negative); Protein-Dipstick 500 mg/dl (Negative); Squamous Epithelial Cells - UA 0 SEEN /hpf (5-10); Urine Bilirubin Dipstick Negative (Negative); Urine Clarity Cloudy (Clear); Urine Urobilinogen Normal (Normal)
[2023-10-23 13:01] LABS: White Blood Cells 50-100 SEEN /hpf (0-5)
[2023-10-23 13:02] LABS: Bacteria 4+ /hpf (None Seen); Red Blood Cells-Urine 5-10 SEEN /hpf (0-5)
[2023-10-23] MEDS: Gentamicin IV 260 MG in Dextrose 5%-Water (50mL Bag) 50 ML 100 MG IVPB (14:04)
[2023-10-23 14:27] VITALS: BP 140/68; PULSE 106; RESP 16; TEMP 35.5
--- NOTE | 2023-10-23 14:35 | HP.PCM_ITS ---
HPI - General HPI Narrative ARIN RICE, is a 38 F who presents with new onset fever of 103 at home, afebrile upon presentation but she had an elevated WBC of 20 and generalized malaise, night sweats. She denies any uterine tenderness or foul disharge, no back pain, no breast pain. she is not breast feeding. she is one week postp artum. she denies any significant respiratory symptoms and she had negative covid and flu upon admission. [facility] Medical History (Updated 10/23/23 @ 14:[address] Ruchi Orozco MD) Arthritis Bilateral carpal tunnel syndrome Chronic hypertension affecting Environmental allergies Hypertension Hypertension Infertility, anovulation Morbid obesity PCOS (polycystic ovarian syndrome) Simple endometrial hyperplasia without atypia Spontaneous vaginal delivery Home Medications montelukast 10 mg tablet (Singulair) 10 mg PO DAILY 12/21/19 [History Last Taken 09/25/23 20:00] fluticasone propionate 93 mcg/actuation breath activated aerosol (Xhance) 1 spray intranasal Q12H 11/13/21 [History Last Taken 09/25/23 08:00] hydrochlorothiazide 25 mg tablet See Rx Instructions .Route .COMPLEX #90 tabs 05/02/23 [Rx Last Taken 09/26/23 08:30] labetalol 100 mg tablet 100 mg PO BID #180 tabs 05/03/23 [Rx Last Taken 09/26/23 08:30] vitamin#30 30 mg iron-10 mg iron-folic acid 1 mg-omg3 capsule 1 cap PO DAILY 07/29/23 [History Last Taken 09/26/23 08:30] Allergy/AdvReac Type Severity Reaction Status Date / Time Environmental Allergies: Allergy Intermediate Rash Verified 10/23/23 10:11 Uncoded amoxicillin Allergy Hives Verified 10/23/23 10:11 Family History Father Heart disease Hypertension Mother Hypertension Cancer, Onset Age: 60 Grandmother Hypertension Myocardial infarction CVA (cerebral vascular accident) Congestive heart failure Lupus Surgical History H/O cervical polypectomy H/O colonoscopy Hx of cholecystectomy S/P dilation and curettage Social History adopted: No household members: spouse current occupational status: employed 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 current occupational exposures/hazards: No pets and animals: Yes pets and animals: dog(s) history of recent travel: No sexually active: Yes Smoking Status: Never smoker alcohol intake: current alcohol intake frequency: holidays/special occasions only details: Social substance use type: does not use caffeine: Yes Type: coffee Number of servings: 2 what type of physical activity do you participate in: none seatbelt use: always do you feel safe at home: Yes additional social history: [employer] 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 ROS Constitutional Constitutional: Reports systems reviewed and no addt'l complaints, except as documented; Denies as per HPI, fatigue or other Eyes Eyes: Reports systems reviewed and no addt'l complaints, except as documented; Denies as per HPI, change in vision or other ENT HEENT: Reports systems reviewed and no addt'l complaints, except as documented Respiratory/Chest Respiratory/Chest: Reports systems reviewed and no addt'l complaints, except as documented Gastrointestinal Gastrointestinal: Reports systems reviewed and no addt'l complaints, except as documented and as per HPI Genitourinary Genitourinary: Reports as per HPI Musculoskeletal Musculoskeletal: Reports systems reviewed and no addt'l complaints, except as documented Neurologic Neurologic: Reports systems reviewed and no addt'l complaints, except as documented Psychiatric Psychiatric: Reports systems reviewed and no addt'l complaints, except as documented Endocrine Endocrinology: Reports systems reviewed and no addt'l complaints, except as doc umented Hematologic/Lymphatic Hematologic/Lymphatic: Reports systems reviewed and no addt'l complaints, except as documented Vital Signs Vital Signs Vital Signs: 10/23/23 10:08 10/23/23 14:27 Temperature 99.3 F H 96 F L Temperature Source Temporal Pulse Rate 108 H 106 H Respiratory Rate 16 16 Blood Pressure 130/81 H 140/68 H Blood Pressure Mean 97 92 Pulse Ox 100 Oxygen Delivery Method Room Air Weight Weight: 251 lb 2 oz Body Mass Index (BMI) 44.4 Physical Exam Const alert, oriented x3 and no apparent distress HEENT normocephalic Head and Scalp: atraumatic Eyes EOMs intact bilaterally and conjunctivae normal Neck full ROM, no lymphadenopathy, supple and thyroid normal General: trachea midline Lymph Lymphatic: no lymphadenopathy noted Resp normal respiratory effort, no retractions, no use of accessory muscles and clear to auscultation bilaterally Cardio Rate: tachycardic GI normal to inspection, nondistended, normoactive bowel sounds, soft to palpation, non-distended and no masses Inspection: Negative for abdominal distention Back/Spine no CVA tenderness Extremity normal to inspection Skin no rashes or lesions noted Neuro moves all extremities and deep tendon reflexes 2+ bilaterally Psych mental status grossly normal Results Lab / Micro Data 10/23/23 11:10 10/23/23 11:10 Labs: Laboratory Results - last 24 hr 10/23/23 11:10: WBC 20.6 H, RBC 4.06 L, Hgb 11.9 L, Hct 35.7 L, MCV 87.9, MCH 29.3, MCHC 33.3, RDW Std Deviation 44.2 H, RDW Coeff of Ingrid 13.7, Plt Count 315, MPV 9.4, Immature Gran % (Auto) 1.800 H, Neut % (Auto) 87.5 H, Lymph % (Auto) 5.9 L, [place] % (Auto) 4.6, Eos % (Auto) 0.0, Baso % (Auto) 0.2, Absolute Neuts (auto) 18.0 H, Absolute Lymphs (auto) 1.21, Nucleated RBC % 0, Sodium 137, Potassium 3.1 L, Chloride 101, Carbon Dioxide 27.0, Anion Gap 9, BUN 10, Creatinine 0.98, Estim Creat Clear Calc 65.02, Est GFR (MDRD) Af Amer 82, Est GFR (MDRD) Non-Af 68, BUN/Creatinine Ratio 10.2, Glucose 107 H, Calcium 8.7, Total Bilirubin 0.50, AST 17, ALT 26, Alkaline Phosphatase 113, Total Protein 6.8, Albumin 2.5 L, Globulin 4.3 H, Albumin/Globulin Ratio 0.6 L 10/23/23 11:40: Lactic Acid 0.9, Urine Color Red, Urine Clarity Cloudy, Urine pH 7.0, Ur Specific [place] 1.010, Urine Protein 500 H, Urine Glucose (UA) Normal, Urine Ketones 5 H, Urine Occult Blood 250 H, Urine Nitrite Negative, Urine Bilirubin Negative, Urine Urobilinogen Normal, Ur Leukocyte Esterase 500 H, Urine RBC 5-10 SEEN, Urine WBC 50-100 SEEN, Ur Squamous Epith Cells 0 SEEN, Urine Bacteria 4+, Urine Mucus 0 SEEN Micro: Microbiology 10/23/23 11:10 Nasal Secretion SARS-CoV-2 & FLU Antigen (Rapid) - Final Imagaing Radiology Impression Abdomen/Pelvis CT 10/23/23 11:32 IMPRESSION: 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 Electronically Signed: Ananth Odell MD at 12:32 EST , Assessment & Plan Assessment/Plan (1) fever: (2) Leukocytosis: (3) Hypertension: QUALIFIERS: Hypertension type: unspecified Qualified Code(s): I10 - Essential (primary) hypertension (4) Hypokalemia: PLAN: Plan admit STO for IV antibiotics and monitoring, cultures pending. patient clinically stable and afebrile upon presentation. monitor overnight. Charges/Coding Visit Charges Inpatient E&M: 67310 Init Hosp L3
[2023-10-23] MEDS: Clindamycin 900 MG/50 ML BAG 75 MG IV ×2 (15:01→22:00)
--- NOTE | 2023-10-23 15:01 | NURSING ---
MED SURG OBS MARCANTHONY ENDOMETRITIS, UTI
[2023-10-23 15:36] VITALS: BMI 44.4
[2023-10-23 15:53] VITALS: BP 122/74; PULSE 104; RESP 18; TEMP 38.1; O2SAT 98
[2023-10-23] MEDS: Potassium Chloride Oral Tablet 20 MEQ 40 MEQ PO (16:33)
[2023-10-23] MEDS: Acetaminophen 325 MG Tablet 650 MG PO (16:34)
[2023-10-23 16:48] LABS: ALB/GLOB Ratio 0.6 RATIO (0.9-2.4); AST(SGOT) 19 U/L (15-37); Alanine Aminotransfer ALT/SGPT 28 U/L (13-56); Albumin, Serum 2.7 g/dL (3.2-5.0); Alkaline Phosphatase 124 U/L (45-117); Anion Gap 8 (5-15); BUN 9 mg/dL (7-18); BUN/Creat Ratio 8.6 RATIO (10-20); Chloride 100 mmol/L (98-107); Creatinine, Serum 1.05 mg/dL (0.55-1.02); EST Glomerular Filtration Rate 63 mL/min (>60); Est Glom Filt Rate - Afr Amer 76 mL/min (>60); Estimated Creatinine Clearance 60.68 ml/min; Globulin 4.8 g/dL (2.2-4.2); Glucose 100 mg/dL (74-106); Potassium 3.2 mmol/L (3.5-5.1); Protein, Total 7.5 g/dL (6.4-8.2); Sodium Level 136 mmol/L (136-145)
[2023-10-23] MEDS: Labetalol 100 MG Tablet PO (22:00)
[2023-10-23] MEDS: 0.9% Saline Lock 10 ML Syringe IV (22:00)
[2023-10-23] MEDS: Ibuprofen 400 MG Tablet PO (22:13)
[2023-10-23 22:20] VITALS: BP 146/90; PULSE 100; RESP 16; TEMP 37.3; O2SAT 97
[2023-10-23 22:23] VITALS: BP 146/90; PULSE 100; RESP 16; TEMP 37.3; O2SAT 97
[2023-10-24 02:42] VITALS: BP 115/65; PULSE 75; RESP 16; TEMP 36.6; O2SAT 96
[2023-10-24] MEDS: Clindamycin 900 MG/50 ML BAG 75 MG IV (05:36)
[2023-10-24] MEDS: 0.9% Saline Lock 10 ML Syringe IV (05:36)
[2023-10-24 06:44] LABS: Absolute Lymphocyte Count 2.07 X10^3/uL (0.83-4.51); Absolute Neutrophil Count 10.6 X10^3/uL (2.0-7.7); Basophil# 0.07 X10^3/uL; Basophil% 0.5 % (0-1); Eosinophil# 0.06 X10^3/uL; Eosinophils% 0.4 % (0-5); Hematocrit 35.7 % (37-47); Hemoglobin 11.4 g/dL (12.0-15.0); Lymphocyte # 2.07 X10^3/ul (0.83-4.51); Lymphocyte % 14.4 % (19-41); Mean Corp Hgb Conc 31.9 g/dL (32-36); Mean Corpuscular Hgb 28.6 pg (27.0-32.0); Mean Corpuscular Volume 89.7 fL (81-99); Mean Platelet Vol. 9.6 fl (6.2-12.0); Monocyte# 1.04 X10^3/uL; Monocyte% 7.2 % (0-10); NRBC Flagged by Analyzer 0 % (0-5); Neutrophil # 10.62 X10^3/uL (2.7-7.7); Neutrophil % 73.7 % (47-70); Platelet Count 294 K/mm3 (150-450); RBC Distribution Width CV 13.9 % (11.6-14.6); RBC Distribution Width SD 45.7 fl (35.1-43.9); Red Blood Count 3.98 M/mm3 (4.2-5.4); White Blood Count 14.4 K/mm3 (4.4-11.0)
[2023-10-24 07:02] LABS: ALB/GLOB Ratio 0.5 RATIO (0.9-2.4); AST(SGOT) 18 U/L (15-37); Alanine Aminotransfer ALT/SGPT 23 U/L (13-56); Albumin, Serum 2.4 g/dL (3.2-5.0); Alkaline Phosphatase 116 U/L (45-117); Anion Gap 6 (5-15); BUN 13 mg/dL (7-18); BUN/Creat Ratio 13.1 RATIO (10-20); Calcium,Total 8.9 mg/dL (8.5-10.1); Chloride 105 mmol/L (98-107); Creatinine, Serum 0.99 mg/dL (0.55-1.02); EST Glomerular Filtration Rate 67 mL/min (>60); Est Glom Filt Rate - Afr Amer 81 mL/min (>60); Estimated Creatinine Clearance 64.36 ml/min; Globulin 4.6 g/dL (2.2-4.2); Glucose 94 mg/dL (74-106); Potassium 3.6 mmol/L (3.5-5.1); Sodium Level 139 mmol/L (136-145)
--- NOTE | 2023-10-24 08:35 | PCM.PN.OB ---
Subjective Subjective HD#2 admit for fever of unknown origin. Patient states that she is feeling better. No fevers or chills today. She is nervous and has questions about the incidental finding of an adrenaloma that measures 2 cm Objective Data Objective Data Vital Signs: Vital Signs Temp Pulse Resp BP Pulse Ox O2 Del Method 97.8 F 75 16 115/65 96 Room Air 10/24/23 02:42 10/24/23 02:42 10/24/23 02:42 10/24/23 02:42 10/24/23 02:42 10/24/23 02:42 Oxygen Delivery Method Room Air Weight: 251 lb 2 oz Body Mass Index (BMI) 44.4 Intake & Output: Intake and Output for Last 24 Hours 10/22/23 10/23/23 10/24/23 23:59 23:59 23:59 Intake Total 156.5 / 156.5 50 / 50 Balance 156.5 / 156.5 50 / 50 Lab / Micro Data 10/24/23 06:00 10/24/23 06:00 Labs: Laboratory Results - last 24 hr 10/23/23 11:10: WBC 20.6 H, RBC 4.06 L, Hgb 11.9 L, Hct 35.7 L, MCV 87.9, MCH 29.3, MCHC 33.3, RDW Std Deviation 44.2 H, RDW Coeff of Ingrid 13.7, Plt Count 315, MPV 9.4, Immature Gran % (Auto) 1.800 H, Neut % (Auto) 87.5 H, Lymph % (Auto) 5.9 L, [place] % (Auto) 4.6, Eos % (Auto) 0.0, Baso % (Auto) 0.2, Absolute Neuts (auto) 18.0 H, Absolute Lymphs (auto) 1.21, Nucleated RBC % 0, Sodium 137, Potassium 3.1 L, Chloride 101, Carbon Dioxide 27.0, Anion Gap 9, BUN 10, Creatinine 0.98, Estim Creat Clear Calc 65.02, Est GFR (MDRD) Af Amer 82, Est GFR (MDRD) Non-Af 68, BUN/Creatinine Ratio 10.2, Glucose 107 H, Calcium 8.7, Total Bilirubin 0.50, AST 17, ALT 26, Alkaline Phosphatase 113, Total Protein 6.8, Albumin 2.5 L, Globulin 4.3 H, Albumin/Globulin Ratio 0.6 L 10/23/23 11:40: Lactic Acid 0.9, Urine Color Red, Urine Clarity Cloudy, Urine pH 7.0, Ur Specific [place] 1.010, Urine Protein 500 H, Urine Glucose (UA) Normal, Urine Ketones 5 H, Urine Occult Blood 250 H, Urine Nitrite Negative, Urine Bilirubin Negative, Urine Urobilinogen Normal, Ur Leukocyte Esterase 500 H, Urine RBC 5-10 SEEN, Urine WBC 50-100 SEEN, Ur Squamous Epith Cells 0 SEEN, Urine Bacteria 4+, Urine Mucus 0 SEEN 10/23/23 16:11: Sodium 136, Potassium 3.2 L, Chloride 100, Carbon Dioxide 28.0, Anion Gap 8, BUN 9, Creatinine 1.05 H, Estim Creat Clear Calc 60.68, Est GFR (MDRD) Af Amer 76, Est GFR (MDRD) Non-Af 63, BUN/Creatinine Ratio 8.6 L, Glucose 100, Calcium 9.0, Total Bilirubin 0.60, AST 19, ALT 28, Alkaline Phosphatase 124 H, Total Protein 7.5, Albumin 2.7 L, Globulin 4.8 H, Albumin/Globulin Ratio 0.6 L 10/24/23 06:00: WBC 14.4 H, RBC 3.98 L, Hgb 11.4 L, Hct 35.7 L, MCV 89.7, MCH 28.6, MCHC 31.9 L, RDW Std Deviation 45.7 H, RDW Coeff of [place]grid 13.9, Plt Count 294, MPV 9.6, Immature Gran % (Auto) 3.800 H, Neut % (Auto) 73.7 H, Lymph % (Auto) 14.4 L, [place] % (Auto) 7.2, Eos % (Auto) 0.4, Baso % (Auto) 0.5, Absolute Neuts (auto) 10.6 H, Absolute Lymphs (auto) 2.07, Nucleated RBC % 0, Sodium 139, Potassium 3.6, Chloride 105, Carbon Dioxide 28.0, Anion Gap 6, BUN 13, Creatinine 0.99, Estim Creat Clear Calc 64.36, Est GFR (MDRD) Af Amer 81, Est GFR (MDRD) Non-Af 67, BUN/Creatinine Ratio 13.1, Glucose 94, Calcium 8.9, Total Bilirubin 0.40, AST 18, ALT 23, Alkaline Phosphatase 116, Total Protein 7.0, Albumin 2.4 L, Globulin 4.6 H, Albumin/Globulin Ratio 0.5 L Micro: Microbiology 10/23/23 11:10 Nasal Secretion SARS-CoV-2 & FLU Antigen (Rapid) - Final Radiography Diagnostic Testing: Radiology Impression Abdomen/Pelvis CT 10/23/23 11:32 IMPRESSION: 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 Electronically Signed: Ananth Odell MD at 12:32 EST , ROS Constitutional Constitutional: Denies chills, fatigue, fever(s), poor appetite or weakness Eyes Eyes: Denies blurry vision, change in vision, seeing flashes or spots in vision ENT HEENT: Denies dizziness, headache(s), loss taste/smell or sore throat Cardiovascular Cardiovascular: Denies chest pain, dizziness, dyspnea, irregular heart rhythm, palpitations or rapid heart rate Respiratory/Chest Respiratory/Chest: Denies chest tightness, cough, dyspnea or breast pain Gastrointestinal Gastrointestinal: Denies abdominal pain, constipation or vomiting Genitourinary Genitourinary: Denies dysuria or flank pain Musculoskeletal Musculoskeletal: Denies difficulty walking, joint pain, limited range of motion or numbness Neurologic Neurologic: Denies abnormal movements, abnormal speech, dizziness, numbness, seizure-like activity or syncope Psychiatric Psychiatric: Denies anxiety, behavioral changes, change in appetite, confusion, depression or suicidal thoughts Physical Exam Const alert, oriented x3 and no apparent distress General Appearance: cooperative and comfortable Neck General: normal visual inspection Thyroid: thyroid normal Lymph Lymphatic: no lymphadenopathy noted Chest inspection of chest normal Chest: abnormal inspection of the chest other (no breast lesions noted. ) Resp normal respiratory effort Cardio regular rate GI normal to inspection, nondistended, normoactive bowel sounds GI Narrative: uterus is firm below umbilicus Palpation: soft Back/Spine no CVA tenderness and thoraco-lumbar ROM normal Extremity normal to inspection, no clubbing, cyanosis or edema, no calf tenderness and no pedal edema Psych mental status grossly normal, thought process normal, cooperative, affect normal, speech normal, activity/motor behavior normal, denies homicidal ideation and denies suicidal ideation Assessment & Plan (1) Hypokalemia: COMMENT: oral replacement (2) Hypertension: QUALIFIERS: Hypertension type: unspecified Qualified Code(s): I10 - Essential (primary) hypertension COMMENT: continue home meds (3) Leukocytosis: (4) fever: COMMENT: CT pelvis and CXR unremarkable. urine culture, blood cultures sent. patient admitted for IV antibiotics and STO in case of endometritis vs pyelonephritis based on UA. gent and clinda IV given. 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 requesting hospitalist consult Charges/Coding Multi Select Codes Visit Charges Visit Charges: 04662 Subs Hosp L3
[2023-10-24 08:47] VITALS: BP 135/57; PULSE 79; RESP 18; TEMP 36.6; O2SAT 99
[2023-10-24] MEDS: hydroCHLOROthiazide 25 MG Tablet PO (08:50)
[2023-10-24] MEDS: Labetalol 100 MG Tablet PO (08:50)
[2023-10-24] MEDS: Potassium Chloride Oral Tablet 20 MEQ 40 MEQ PO (08:51)
--- NOTE | 2023-10-24 12:03 | PN.HOSP_ITS ---
Reason for Visit Reason for Visit: Diagnoses Neoplasm of unspecified behavior of endocrine glands and other parts of nervous system (10/23/23) Elevated white blood cell count, unspecified (10/23/23) Hypokalemia (10/23/23) Essential (primary) hypertension (10/23/23) Pyrexia of unknown origin following delivery (10/23/23) Subjective Subjective 8-year-old female history of hypertension, morbid obesity, recent delivery who presented to [facility] 10/23/2023 with new onset fever of 103 at home. Had a white blood cell count of 20 on arrival as well as some general malaise, fever resolved with IV antibiotics. Patient did have CT scan of her abdomen as part of her work-up and there was a 2 cm left-sided adrenal incidentaloma. She was very anxious about this so hospitalist consulted for further work-up/management recommendations. Patient seen at bedside and has bo negative ROS, overall feeling well. Objective Data Objective Data Vital Signs: Vital Signs Temp Pulse Resp BP Pulse Ox O2 Del Method 97.8 F 79 18 135/57 H 99 Room Air 10/24/23 08:47 10/24/23 08:47 10/24/23 08:47 10/24/23 08:47 10/24/23 08:47 10/24/23 08:47 Oxygen Delivery Method Room Air Weight: 113.908 kg Body Mass Index (BMI) 44.4 Intake & Output: Intake and Output for Last 24 Hours 10/22/23 10/23/23 10/24/23 23:59 23:59 23:59 Intake Total 156.5 / 156.5 50 / 50 Balance 156.5 / 156.5 50 / 50 Lab / Micro Data 10/24/23 06:00 10/24/23 06:00 Labs: Laboratory Results - last 24 hr 10/23/23 11:40: Lactic Acid 0.9, Urine Color Red, Urine Clarity Cloudy, Urine pH 7.0, Ur Specific [place] 1.010, Urine Protein 500 H, Urine Glucose (UA) Normal, Urine Ketones 5 H, Urine Occult Blood 250 H, Urine Nitrite Negative, Urine Bilirubin Negative, Urine Urobilinogen Normal, Ur Leukocyte Esterase 500 H, Urine RBC 5-10 SEEN, Urine WBC 50-100 SEEN, Ur Squamous Epith Cells 0 SEEN, Urine Bacteria 4+, Urine Mucus 0 SEEN 10/23/23 16:11: Sodium 136, Potassium 3.2 L, Chloride 100, Carbon Dioxide 28.0, Anion Gap 8, BUN 9, Creatinine 1.05 H, Estim Creat Clear Calc 60.68, Est GFR (MDRD) Af Amer 76, Est GFR (MDRD) Non-Af 63, BUN/Creatinine Ratio 8.6 L, Glucose 100, Calcium 9.0, Total Bilirubin 0.60, AST 19, ALT 28, Alkaline Phosphatase 124 H, Total Protein 7.5, Albumin 2.7 L, Globulin 4.8 H, Albumin/Globulin Ratio 0.6 L 10/24/23 06:00: WBC 14.4 H, RBC 3.98 L, Hgb 11.4 L, Hct 35.7 L, MCV 89.7, MCH 28 .6, MCHC 31.9 L, RDW Std Deviation 45.7 H, RDW Coeff of Ingrid 13.9, Plt Count 294, MPV 9.6, Immature Gran % (Auto) 3.800 H, Neut % (Auto) 73.7 H, Lymph % (Auto) 14.4 L, [place] % (Auto) 7.2, Eos % (Auto) 0.4, Baso % (Auto) 0.5, Absolute Neuts (auto) 10.6 H, Absolute Lymphs (auto) 2.07, Nucleated RBC % 0, Sodium 139, Potassium 3.6, Chloride 105, Carbon Dioxide 28.0, Anion Gap 6, BUN 13, Creatinine 0.99, Estim Creat Clear Calc 64.36, Est GFR (MDRD) Af Amer 81, Est GFR (MDRD) Non-Af 67, BUN/Creatinine Ratio 13.1, Glucose 94, Calcium 8.9, Total Bilirubin 0.40, AST 18, ALT 23, Alkaline Phosphatase 116, Total Protein 7.0, Albumin 2.4 L, Globulin 4.6 H, Albumin/Globulin Ratio 0.5 L Micro: Microbiology 10/23/23 11:40 Urine, Clean Catch Urine Culture - Preliminary Streptococcus group A 10/23/23 11:10 Nasal Secretion SARS-CoV-2 & FLU Antigen (Rapid) - Final Radiography Diagnostic Testing: Radiology Impression Abdomen/Pelvis CT 10/23/23 11:32 IMPRESSION: 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 Electronically Signed: Ananth Odell MD at 12:32 EST , Physical Exam Narrative General: Alert, oriented, no apparent distress HEENT: Atraumatic, normocephalic Eyes: Anicteric, normal conjunctiva, extraocular movements grossly intact Neck: Supple Respiratory: Clear to auscultation bilaterally, normal respiratory effort Cardiovascular: Regular rate and rhythm GI: Soft, nontender, nondistended Extremities: No edema Musculoskeletal: Moving all extremities Neuro: No overt focal neurological deficits Skin: No rashes appreciated Psych: Cooperative Assessment & Plan Assessment/Plan (1) fever: (2) Leukocytosis: (3) Hypertension: QUALIFIERS: Hypertension type: unspecified Qualified Code(s): I10 - Essential (primary) hypertension (4) Hypokalemia: PLAN: Plan #Adrenal lesion on CT -2 cm left-sided adrenal lesion seen on CT as an incidental finding, is low-attenuation in [place] and given small size this is very likely noncancerous -Ordered DHEA-S and plasma renin/aldosterone activity as well as plasma catecholamines -These can take time to come back and discussed with patient, she will follow-up with her primary care physician for results and further work-up and management -Can consider further imaging or work-up pending these results. -All questions and concerns answered Charges/Coding Visit Charges Inpatient E&M: 36247 Subs Hosp L1
--- NOTE | 2023-10-24 14:11 | PHA.DC.MC.R ---
Pharmacy [facility] Service has performed discharge medication reconciliation and counseling for this patient. 1. ERYTHROMYCIN 500MG PO BID X 7 DAYS The patient's discharge medication list was reviewed for discrepancies and discrepancies were resolved. The patient was counseled on the following discharge medications and changes in medications for homegoing were reviewed. The Reason for Use, instructions for use, and potential side effects were reviewed for all new medications. The patient's questions regarding all of their medications were answered. The patient was able to verbally demonstrate an understanding of their discharge medications. Patient counseled by clinical pharmacy specialistMoises. Medications at Discharge Home Medications montelukast 10 mg tablet (Singulair) 10 mg PO DAILY 12/21/19 fluticasone propionate 93 mcg/actuation breath activated aerosol (Xhance) 1 spray intranasal Q12H 11/13/21 labetalol 100 mg tablet 100 mg PO BID #180 tabs 05/03/23 vitamin#30 30 mg iron-10 mg iron-folic acid 1 mg-omg3 capsule 1 cap PO DAILY 07/29/23 erythromycin 500 mg tablet 500 mg PO BID #14 tabs 10/24/23 hydrochlorothiazide 25 mg tablet See Rx Instructions .Route .COMPLEX #90 tabs 10/24/23
[2023-11-01 16:09] LABS: ALDOSTERONE/RENIN RATIO 1.2 (0.0-30.0); Aldosterone, Serum 1.8 ng/dL (0.0-30.0); Dopamine, Pl <30 pg/mL (0-48); Epinephrine, Pl <15 pg/mL (0-62); Norepinephrine, Pl 423 pg/mL (0-874); Renin, Plasma 1.549 ng/mL/hr (0.167-5.380)
== END 2023-10-24 14:27 | disposition home or self-care (01) ==
LOC: ED 14:16 → MS3 15:09
PROVIDERS: Internal Medicine; Admitting Provider Obstetrics & Gynecology; Emergency Provider Student in an Organized Health Care Education/Training Program; PCP Internal Medicine; Visit Provider Obstetrics & Gynecology
DX: O86.4 Pyrexia of unknown origin following delivery (principal); Z68.41 Body mass index [BMI] 40.0-44.9, adult; E66.01 Morbid (severe) obesity due to excess calories; E27.9 Disorder of adrenal gland, unspecified; O99.215 Obesity complicating the puerperium; E87.6 Hypokalemia; Z79.899 Other long term (current) drug therapy; I10 Essential (primary) hypertension; D72.829 Elevated white blood cell count, unspecified; O99.285 Endocrine, nutritional and metabolic diseases complicating the puerperium
CPT/HCPCS: 36415; 71045; 74177; 80053; 81001; 82088; 82384; 82627; 83605; 84244; 85025; 87040; 87077; 87086; 87088; 87428; 96365; 96366; 96367; 99221; 99285; J7050; Q9967; 82626; A4216; G0378

== ENCOUNTER → 2023-10-31 | Outpatient (CLI) | payer BC, SELFPAY ==
[2023-10-31 16:26] LABS: Absolute Neutrophil Count 5.5 X10^3/uL (2.0-7.7); Basophil# 0.08 X10^3/uL; Basophil% 0.8 % (0-1); Hematocrit 40.9 % (37-47); Hemoglobin 13.1 g/dL (12.0-15.0); Lymphocyte % 34.3 % (19-41); Mean Corpuscular Hgb 28.2 pg (27.0-32.0); Mean Platelet Vol. 10.1 fl (6.2-12.0); Monocyte# 0.55 X10^3/uL; Monocyte% 5.7 % (0-10); NRBC Flagged by Analyzer 0 % (0-5); Neutrophil # 5.46 X10^3/uL (2.7-7.7); Platelet Count 506 K/mm3 (150-450); RBC Distribution Width CV 13.2 % (11.6-14.6); RBC Distribution Width SD 42.8 fl (35.1-43.9); Red Blood Count 4.65 M/mm3 (4.2-5.4); White Blood Count 9.6 K/mm3 (4.4-11.0)
[2023-10-31 16:36] LABS: Anion Gap 7 (5-15); BUN 16 mg/dL (7-18); BUN/Creat Ratio 12.8 RATIO (10-20); Calcium,Total 9.6 mg/dL (8.5-10.1); Chloride 104 mmol/L (98-107); Creatinine, Serum 1.25 mg/dL (0.55-1.02); EST Glomerular Filtration Rate 51 mL/min (>60); Est Glom Filt Rate - Afr Amer 62 mL/min (>60); Glucose 89 mg/dL (74-106); Potassium 3.5 mmol/L (3.5-5.1); Sodium Level 139 mmol/L (136-145)
== END | disposition home or self-care (01) ==
LOC: BIMLAB 15:13
PROVIDERS: PCP Internal Medicine; Referring Provider Internal Medicine; Visit Provider Internal Medicine
DX: I10 Essential (primary) hypertension (principal)
CPT/HCPCS: 36415; 80048; 85025

== ENCOUNTER → 2024-02-03 | Outpatient (CLI) | payer BC, SELFPAY ==
--- OUTSIDE RECORDS SUMMARY | 2024-02-03 13:47 | XMS RPT_ITS | CCD ---
Author Name Unknown Address [address] [place] [address] Organization [facility] Care Team Providers Care Consulting Sales Executive Name Role Phone LELE SALAS Primary Care UnavailREGINALDO Tate Referring Unavailab TERE Arroyo Attending Unavailable PATRICIA HOSKINS Primary Care Unavailable VIRGIL HOSKINSBE Bryce Primary Care Unavailable REGINALDO DEE Referring Unavailab VALERI Crowe Attending Unavailable PATRICIA HOSKINS B Primary Care Unavailable REGINALDO DEE Referring Unavailab TERE Arroyo Attending Unavailable REGINALDO DEE Referring Unavailab JANNA Guevara Attending Unavailable FRIDA HOSKINSONGBE B Primary Care Unavailable NIMO CORBIN Attending Unavailable JANNA MORA Referring Unavailable GATO EFEWONGBE B Primary Care Unavailable Allergies Allergy Classification Reported Allergen(s) Allergy Type Date of Onset Reaction(s) Facility (3 sources) Amoxicillin; Translations: [AMOXICILLIN] Drug Allergy 1 [facility] Repository (2 sources) Penicillins; Translations: [PENICILLINS] Propensity to adverse reactions to drug (disorder) 1 [facility] Repository (1 source) AROMATIC OILS; Translations: [AROMATIC OILS] Propensity to adverse reactions to drug (disorder) 3 [facility] Repository Medications Current Medications Medication Drug Class(es) Dates Sig (Normalized) Sig (Original) cephalexin 500 mg oral capsule (1 source) Cephalosporin Antibacterial Start: 11-22-2022 End: 12-02-2022 take 1 capsule by mouth twice daily cephALEXin (KEFLEX) 500 mg capsule Take 1 capsule by mouth twice daily for 10 days. 20 capsule 0 11/22/2022 12/02/2022 Active Completed/Discontinued Medications Medication Drug Class(es) Dates Sig (Normalized) Sig (Original) Desogestrel / Ethinyl Estradiol (1 source) Progestin, Estrogen Start: 03-01-2021 take 1 tablet by mouth once daily ENSKYCE 0.15-0.03 mg per tablet Take 1 tablet by mouth once daily. 0 03/01/2021 Active Problems Active Problems Problem Classification Problem Date Documented Da te Episodic/Chronic Other nutritional; endocrine; and metabolic disorders (1 source) Obesity; Translations: [Obesity, unspecified] Onset: 11-10-2011 11-10-2011 Chronic Other upper respiratory infections (1 source) Sore throat symptom; Translations: [Acute pharyngitis, unspecified] Episodic Past or Other Problems Problem Classification Problem Date Documented Date Episodic/Chronic Biliary tract disease (1 source) Biliary calculus; Translations: [Calculus of gallbladder with chronic cholecystitis without obstruction] Onset: 11-10-2011 11-10-2011 Episodic Results Test Name Value Interpretation Reference Range Facil ity Vital Signs Date Time Vital Sign Value Performing Clinician Faci lity 11-22-2022 11:29-0500 Body temperature 97 [degF] Arti Winters APRN.CNP Work Phone: [facility] 11-22-2022 11:29-0500 Body weight 105.23 kg Arti Winters APRN.CNP Work Phone: [facility] 11-22-2022 11:29-0500 Diastolic blood pressure 76 mm[Hg] Arti Winters APRN.CNP Work Phone: [facility] 11-22-2022 11:29-0500 Heart rate 82 /min Arti Winters APRN.DEGREE CLERK Work Phone: [facility] 11-22-2022 11:29-0500 Respiratory rate 16 /min Arti Winters APRN.DEGREE CLERK Work Phone: [facility] 11-22-2022 11:29-0500 SaO2% (BldA) [Mass fraction] 98 % Arti Winters APRN.CNP Work Phone: [facility] 11-22-2022 11:29-0500 Systolic blood pressure 110 mm[Hg] Arti Winters APRN.LUIS EDUARDO Work Phone: [facility] Encounters Encounter Date Encounter Type Care Provider Facility Start: 08-12-2023 End: 08-12-2023 ambulatory REGINALDO Jenniffer [facility] Start: 08-02-2023 End: 08-02-2023 ambulatory NIMO CORBIN [facility] Start: 07-15-2023 End: 07-15-2023 ambulatory REGINALDO Jenniffer [facility] Start: 07-01-2023 End: 07-01-2023 ambulatory [facility] Start: 06-10-2023 End: 06-10-2023 ambulatory [facility] Start: 11-22-2022 End: 11-22-2022 ambulatory [facility] Facility:[facility] Start: 11-22-2022 End: 11-22-2022 Patient encounter procedure Arti Winters APRN.CNP Work Phone: [facility] Procedures Date Procedure Procedure Detail Performing Clinician Start: 11-22-2022 STREP A MOLECULAR (POC) Bridget Penn APRN.CNP Work Phone: Plan of Treatment Date Care Activity Detail Author Start: 07-29-2022 Influenza vaccination INFLUENZA (#1) [facility] Start: 11-28-2021 DEPRESSION ASSESSMENT DEPRESSION ASS ESSMENT [facility] Start: 2016 HPV TESTING HPV TESTING [facility] Start: 2007 PAP TESTING PAP TESTING [facility] Start: 2005 Urine microalbumin profile DTAP,TDAP ,TD (1 - Tdap) [facility] Start: 2004 HEPATITIS C SCREENING HEPATITIS C SC TIM [facility] Start: 2004 HIV SCREENING HIV SCREENING [facility] Start: 01-13-1987 COVID-19 VACCINE (#1) COVID-19 VACCI NE (#1) [facility] Start: 1986 HEPATITIS B (1 of 3 - 3-dose series) HEPATITIS B (1 of 3 - 3-dose series) [facility] Payers Date Payer Category Payer Unknown [id number] 2015 Unknown [employer] PPO OOS [id number] 2015-Present [phone] [address] [place] [address] PPO [id number] 1986 Unknown [id number] 1986 Unknown [id number] 1986 Unknown [id number] 1986 Unknown [id number] 1986 Unknown [id number] Social History Date Type Detail Facility Start: 11-22-2022 Tobacco smoking stat [facility] Never smoked tobacco [facility] Work Phone: Start: 11-22-2022 Tobacco use and exposure Smokeless tobacco non-user [facility] Work Phone: Start: 11-22-2022 Alcohol intake Current drinke r of alcohol (finding) [facility] Start: 1985 Sex Assigned At Not on file C [facility] Clinical Note 08-02-2023 Note Date & Type Note Facility 08-02-2023 Note Arin Rice is a new patient who's primary care provider is Patricia Hoskins MD here for evaluation of heart. Chief Complaint Patient presents with ECHO echo History of Presenting Problem HPI Thank you for consulting us regarding Arin Rice. She is referred to the cardiology clinic at [facility] for evaluation of the heart. I saw this patient in the echocardiogram clinic on 08/02/2023. Patient was referred to the echocardiographic clinic for a echocardiogram since there were limited heart views on OB ultrasound. Cardiac ROS Review of Systems See the full note Past Medical History History reviewed. No pertinent past medical history. Past Surgical History: Procedure Laterality Date CHOLECYSTECTOMY Medications: Outpatient Encounter Medications as of 08/02/2023 Medication Sig Dispense Refill MV-Min-Fe Fum-FA-DHA ( 1 PO) Take by mouth HYDROCHLOROTHIAZIDE PO Take by mouth Montelukast Sodium (SINGULAIR PO) Take by mouth LABETALOL HCL PO Take by mouth Oxymetazoline HCl (NASAL SPRAY NA) Administer in nose No facility-administered encounter medications on file as of 08/02/2023. Allergies: Allergies Allergen Reactions Amoxicillin Rash Aromatic Oils Rash Family Medical History: Family History Problem Relation Age of Onset High Blood Pressure Mother Melanoma Mother High Blood Pressure Father Diabetes Mellitus II Father High Blood Pressure Maternal Grandmother Heart Failure Maternal Grandmother Lupus Maternal Grandmother High Blood Pressure Maternal Grandfather Social History: Social History Socioeconomic History Marital status: Spouse name: None Number of children: None Years of education: None Highest education level: None Tobacco Use Smoking status: Never Smokeless tobacco: Never Substance and Sexual Activity Alcohol use: Never Drug use: Never Physical Exam: Vitals: 08/02/23 0912 BP: 139/64 Pulse: 77 Growth %ile SmartLinks can only be used for patients less than 20 years old. Weight - Scale: (!) 117 kg Facility age limit for growth %gilberto is 20 years. Height: 160 cm Facility age limit for growth %gilberto is 20 years. Physical Exam Patient is here for the echocardiogram. Physical exam was deferred. 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 Atrioventricular and ventriculoarterial concordance seen. Atria: Normal left and right atrial size. There was a patent foramen ovale, with [id number] shunt. Tricuspid valve: Normal tricuspid valve. There was normal Doppler across the tricuspid valve. Mitral valve: Normal mitral valve. There was normal Doppler across the mitral valve. Right ventricle: There was normal size and systolic function. Left ventricle: There was normal size and systolic function. Aortic valve: Normal aortic valve. There was normal Doppler across the aortic valve seen. Pulmonary valve: Normal pulmonary valve. There was normal Doppler across the pulmonary valve seen. Ventricular septum: There was no obvious ventricular septal defect seen. Main pulmonary artery: Normal main pulmonary artery. Pulmonary arteries: Good size branch pulmonary arteries. Pulmonary veins: There were at least 2/4 pulmonary veins seen entering into the left atrium. Systemic venous return: There was normal systemic venous return seen. Aortic arch: Patent aortic arch. Ductal arch: Patent Ductal arch. 3-vessel view: There was normal 3-vessel view. Ductus venosus: There was normal flow pattern seen in the ductus venosus. Umbilical artery and umbilical vein. There was normal pulse Doppler in umbilical artery and umbilical vein. Rhythm: There appeared to be a sinus rhythm. There was no arrhythmia noted. Impression and recommendations. 1) Technically difficult study due to movements and maternal body habitus Some views were limited, grossly normal echocardiogram. 2) I have discussed the limitations of echocardiographic examination, that is likely to miss small ventricular septal defects as well as mild semilunar valve stenosis. Patent foramen ovale and patent ductus arteriosus are normal findings in utero. Coarctation of aorta is difficult to diagnose pre natally in the presence of patent ductus arteriosus. 3) I have also discussed echocardiographic findings in detail including circulation, pathophysiology of Patent foramen ovale and Patent ductus arteriosus, prognosis, medical and surgical treatments, follow up echocardiograms and follow ups. 4) I would like to see in cardiology clinic here at [facility], 1-2 months after the or earlier if cardiac condition/status changes in any way. Counseling and/or coordin (more content not included)... [facility] Progress note 11-22-2022 Note Date & Type Note Facility 11-22-2022 Note HNO ID: [id number] Author: Arti Winters APRN.DEGREE CLERK Service: ? Author Type: Nurse Practitioner Type: Progress Notes Filed: 11/22/2022 11:50 AM Note Text: CC: Patient presents with: Nasal Congestion: drainage, cough, low grade fever x 10 days, sore throat x 3 days HPI: Arin Rice is a 37 year old female who presents to the office with complaint of head congestion, cough, nonproductive, and sore throat cough and congestion is 10 days, sore throat started a few days ago. Symptoms are staying the same. Associated symptoms includes sore throat and nasal congestion. Denies ear pain, nausea, vomiting , and diarrhea. Treatments tried include nothing so far. with no relief of symptoms. Sick contacts: unknown. History of asthma, frequent episodes of bronchitis, chronic bronchitis, bronchiectasis or COPD: No Smoker: No Seasonal/environmental allergies: No The ROS is otherwise negative. The patient's pmh, medications, allergies, and past visits are reviewed. PHYSICAL EXAM: BP 110/76 Pulse 82 Temp 36.1 ?C (97 ?F) Resp 16 Wt 105.2 kg (232 lb) SpO2 98% General appearance: alert, cooperative, pleasant, in no acute distress Head: Normocephalic Eyes: EOM's intact, conjunctiva pink and moist, no icterus, sclera white, non-injected Ears: Right ear: External ear/canal- Normal, TM - clear with good landmarks. Left ear: External ear/canal- Normal, TM - clear with good landmarks Oropharynx:moderate erythema, without exudates present Heart: Negative. RRR without obvious murmur, gallop, or rubs. No ectopy. Lungs: clear to auscultation, without rales or wheeze, good air exchange PAST MEDICAL HISTORY Diagnosis Date NEGATIVE MEDICAL HISTORY PAST SURGICAL HISTORY Procedure Laterality Date LAPS SURG CHOLECYSTECTOMY W/CHOLANGIOGRAPHY 11-12-11 ALLERGIES Amoxicillin and Penicillins MEDICATIONS ENSKYCE 0.15-0.03 mg per tablet Take 1 tablet by mouth once daily. XHANCE 93 mcg/actuation nasal spray Use 1 [place] in the nose twice daily. Both nostrils hydroCHLOROthiazide (HYDRODIURIL, ESIDRIX) 25 mg tablet Take 25 mg by mouth once daily. labetalol (TRANDATE) 100 mg tablet Take 100 mg by mouth twice daily. montelukast (SINGULAIR) 10 mg tablet Take 1 tablet by mouth once daily. ofloxacin (FLOXIN) 0.3 % otic solution Use 5 Drops in both ears twice daily. (Patient not taking: Reported on 11/22/2022) FAMILY HISTORY Problem Relation Age of Onset Ischemic Heart Disease Maternal Grandmother Ischemic Heart Disease Father Social History Tobacco Use Smoking status: Never Smokeless tobacco: Never Substance Use Topics Alcohol use: Yes Comment: socially Drug use: No ASSESSMENT/PLAN: 1. Sore throat - ICD9: 462, ICD10: J02.9 - STREP A MOLECULAR (POC) - positive Keflex bid for 10 days. Patient was educated about cross sensitivity between Keflex and amoxicillin being low risk if penicillin allergy is a rash. Patient will stop medication if rash occurs. Prescription instructions reviewed with patient as applicable. Potential red flag symptoms discussed with the patient. Reviewed appropriate action plan to take if red flag symptoms occur. Patient agreeable to treatment plan. Arti Winters APRN.LUIS EDUARDO [facility] History of Present illness Narrative 11-22-2022 Arti Winters APRN.LUIS EDUARDO - 11/22/2022 11:34 AM EST Note Date & Type Note Facility 11-22-2022 History of Presen t illness Narrative CC: Patient presents with: Nasal Congestion: drainage, cough, low grade fever x 10 days, sore throat x 3 days HPI: Arin Rice is a 37 year old female who presents to the office with complaint of head congestion, cough, nonproductive, and sore throat cough and congestion is 10 days, sore throat started a few days ago. Symptoms are staying the same. Associated symptoms includes sore throat and nasal congestion. Denies ear pain, nausea, vomiting , and diarrhea. Treatments tried include nothing so far. with no relief of symptoms. Sick contacts: unknown. History of asthma, frequent episodes of bronchitis, chronic bronchitis, bronchiectasis or COPD: No Smoker: No Seasonal/environmental allergies: No The ROS is otherwise negative. The patient's pmh, medications, allergies, and past visits are reviewed. PHYSICAL EXAM: BP 110/76 Pulse 82 Temp 36.1 C (97 F) Resp 16 Wt 105.2 kg (232 lb) SpO2 98% General appearance: alert, cooperative, pleasant, in no acute distress Head: Normocephalic Eyes: EOM's intact, conjunctiva pink and moist, no icterus, sclera white, non-injected Ears: Right ear: External ear/canal- Normal, TM - clear with good landmarks. Left ear: External ear/canal- Normal, TM - clear with good landmarks Oropharynx:moderate erythema, without exudates present Heart: Negative. RRR without obvious murmur, gallop, or rubs. No ectopy. Lungs: clear to auscultation, without rales or wheeze, good air exchange PAST MEDICAL HISTORY Diagnosis Date NEGATIVE MEDICAL HISTORY PAST SURGICAL HISTORY Procedure Laterality Date LAPS SURG CHOLECYSTECTOMY W/CHOLANGIOGRAPHY 11-12-11 ALLERGIES Amoxicillin and Penicillins MEDICATIONS ENSKYCE 0.15-0.03 mg per tablet Take 1 tablet by mouth once daily. XHANCE 93 mcg/actuation nasal spray Use 1 [place] in the nose twice daily. Both nostrils hydroCHLOROthiazide (HYDRODIURIL, ESIDRIX) 25 mg tablet Take 25 mg by mouth once daily. labetalol (TRANDATE) 100 mg tablet Take 100 mg by mouth twice daily. montelukast (SINGULAIR) 10 mg tablet Take 1 tablet by mouth once daily. ofloxacin (FLOXIN) 0.3 % otic solution Use 5 Drops in both ears twice daily. (Patient not taking: Reported on 11/22/2022) FAMILY HISTORY Problem Relation Age of Onset Ischemic Heart Disease Maternal Grandmother Ischemic Heart Disease Father Social History Tobacco Use Smoking status: Never Smokeless tobacco: Never Substance Use Topics Alcohol use: Yes Comment: socially Drug use: No ASSESSMENT/PLAN: 1. Sore throat - ICD9: 462, ICD10: J02.9 - STREP A MOLECULAR (POC) - positive Keflex bid for 10 days. Patient was educated about cross sensitivity between Keflex and amoxicillin being low risk if penicillin allergy is a rash. Patient will stop medication if rash occurs. Prescription instructions reviewed with patient as applicable. Potential red flag symptoms discussed with the patient. Reviewed appropriate action plan to take if red flag symptoms occur. Patient agreeable to treatment plan. Arti Winters APRN.LUIS EDUARDO documented in this encounter [facility] Evaluation note Note Date & Type Note Facility documented in this encounter [facility] Summary Purpose Family History No Family History Records FoundNo Family History Records Found Advance Directives No Advanced Directives Records FoundNo Advanced Directives Records Found Additional Source Comments INFORMATION SOURCE (unrecogn ized section and content) DATE CREATED AUTHOR AUTHOR'S ORGANIZ ATION 08/14/2023 [facility] Source Comments (unrecognize d section and content) In the event this informatio n is protected by the Federal Confidentiality of Alcohol and Drug Abuse Patient Records regulations: The Federal rules restrict any use of the information to criminally investigate or prosecute any alcohol or drug abuse patient.[facility] Reason for Visit (unrecogniz ed section and content) Care Teams (unrecognized sec tion and content) FOR RECORDS PERTAINING TO PATIENTS WHO ARE OR HAVE BEEN ENROLLED IN A CHEMICAL DEPENDENCY/SUBSTANCEABUSE PROGRAM, SOME INFORMATION MAY BE OMITTED. This clinical summary was aggregated from multiple sources. Caution should be exercised in using it in the provision of clinical care. This summary normalizes information from multiple sources, and as a consequence, information in this document may materially change the coding, format and clinical context of patient data. In addition, data may be omitted in some cases. CLINICAL DECISIONS SHOULD BE BASED ON THE PRIMARY CLINICAL RECORDS. [employer] [facility]. provides no warranty or guarantee of the accuracy or completeness of information in this document.
[2024-02-03 15:57] LABS: Anion Gap 5 (5-15); BUN 12 mg/dL (7-18); BUN/Creat Ratio 12.9 RATIO (10-20); Calcium,Total 9.8 mg/dL (8.5-10.1); Chloride 106 mmol/L (98-107); Creatinine, Serum 0.93 mg/dL (0.55-1.02); EST Glomerular Filtration Rate 72 mL/min (>60); Est Glom Filt Rate - Afr Amer 87 mL/min (>60); Glucose 95 mg/dL (74-106); Potassium 3.9 mmol/L (3.5-5.1); Sodium Level 140 mmol/L (136-145)
== END | disposition home or self-care (01) ==
LOC: BIMLAB 13:14
PROVIDERS: PCP Internal Medicine; Visit Provider Internal Medicine
DX: I10 Essential (primary) hypertension (principal)
CPT/HCPCS: 36415; 80048

== ENCOUNTER → 2024-08-17 | Outpatient (CLI) | payer BC, SELFPAY ==
[2024-08-17 15:16] LABS: Absolute Lymphocyte Count 2.46 X10^3/uL (0.83-4.51); Absolute Neutrophil Count 4.4 X10^3/uL (2.0-7.7); Basophil# 0.06 X10^3/uL; Basophil% 0.8 % (0-1); Eosinophil# 0.09 X10^3/uL; Eosinophils% 1.2 % (0-5); Hematocrit 43.1 % (37-47); Hemoglobin 13.7 g/dL (12.0-15.0); Lymphocyte # 2.46 X10^3/ul (0.83-4.51); Lymphocyte % 32.7 % (19-41); Mean Corp Hgb Conc 31.8 g/dL (32-36); Mean Corpuscular Hgb 27.9 pg (27.0-32.0); Mean Corpuscular Volume 87.8 fL (81-99); Mean Platelet Vol. 10.9 fl (6.2-12.0); Monocyte# 0.52 X10^3/uL; Monocyte% 6.9 % (0-10); NRBC Flagged by Analyzer 0 % (0-5); Neutrophil # 4.38 X10^3/uL (2.7-7.7); Neutrophil % 58.1 % (47-70); Platelet Count 342 K/mm3 (150-450); RBC Distribution Width CV 13.2 % (11.6-14.6); RBC Distribution Width SD 42.4 fl (35.1-43.9); Red Blood Count 4.91 M/mm3 (4.2-5.4); White Blood Count 7.5 K/mm3 (4.4-11.0)
[2024-08-17 15:42] LABS: ALB/GLOB Ratio 0.9 RATIO (0.9-2.4); AST(SGOT) 21 U/L (15-37); Alanine Aminotransfer ALT/SGPT 30 U/L (13-56); Albumin, Serum 3.6 g/dL (3.2-5.0); Alkaline Phosphatase 57 U/L (45-117); Anion Gap 6 (5-15); BUN 14 mg/dL (7-18); BUN/Creat Ratio 14.8 RATIO (10-20); Calcium,Total 10.1 mg/dL (8.5-10.1); Chloride 105 mmol/L (98-107); Cholesterol 227 mg/dL (200); Creatinine, Serum 0.95 mg/dL (0.55-1.02); EST Glomerular Filtration Rate 70 mL/min (>60); Est Glom Filt Rate - Afr Amer 85 mL/min (>60); Globulin 4.1 g/dL (2.2-4.2); Glucose 83 mg/dL (74-106); High Density Lipoprotein 52 mg/dL; Potassium 4.2 mmol/L (3.5-5.1); Protein, Total 7.7 g/dL (6.4-8.2); Sodium Level 137 mmol/L (136-145); Triglycerides 164 mg/dL; Very Low Density Lipoprotein 33 mg/dL (5-40)
== END | disposition home or self-care (01) ==
LOC: BIMLAB 11:25
PROVIDERS: PCP Internal Medicine; Referring Provider Internal Medicine; Visit Provider Internal Medicine
DX: I10 Essential (primary) hypertension (principal)
CPT/HCPCS: 36415; 80053; 80061; 85025

== ENCOUNTER → 2025-07-12 | Outpatient (CLI) | payer BC, SELFPAY ==
[2025-07-12 12:32] LABS: Hematocrit 41.0 % (37-47); Hemoglobin 13.8 g/dL (12.0-15.0); Immature Granulocytes Count 0.040 X10^3/uL (0.0-0.0); Mean Corp Hgb Conc 33.7 g/dL (32-36); Mean Corpuscular Volume 84.5 fL (81-99); Mean Platelet Vol. 10.1 fl (6.2-12.0); NRBC Flagged by Analyzer 0 % (0-5); Platelet Count 382 K/mm3 (150-450); RBC Distribution Width CV 13.5 % (11.6-14.6); RBC Distribution Width SD 41.6 fl (35.1-43.9); Red Blood Count 4.85 M/mm3 (4.2-5.4); White Blood Count 8.5 K/mm3 (4.4-11.0)
[2025-07-12 13:29] LABS: AST(SGOT) 17 U/L (<=31); Alanine Aminotransfer ALT/SGPT 13 U/L (<=34); Albumin, Serum 4.1 g/dL (3.5-5.0); Alkaline Phosphatase 72 U/L (35-104); Anion Gap 14 (5-15); BUN 16 mg/dL (4-19); BUN/Creat Ratio 19.0 RATIO (10-20); Calcium,Total 9.6 mg/dL (7.6-11.0); Carbon Dioxide 21.6 mmol/L (21.0-32.0); Chloride 103 mmol/L (98-108); Cholesterol 214 mg/dL (<=200); Globulin 3.3 g/dL (2.2-4.2); Glucose 98 mg/dL (70-99); Low Density Lipoprotein Calc. 121 mg/dL; Magnesium 2.0 mg/dL (1.5-2.2); Potassium 4.1 mmol/L (3.3-5.1); Triglycerides 193 mg/dL; Very Low Density Lipoprotein 39 mg/dL (5-40); cholesterol:hdl ratio screen 3.93
== END | disposition home or self-care (01) ==
LOC: LAB 11:11
PROVIDERS: PCP Internal Medicine; Referring Provider Internal Medicine; Visit Provider Internal Medicine
DX: I10 Essential (primary) hypertension (principal)
CPT/HCPCS: 36415; 80053; 80061; 83735; 84439; 84443; 85025